=== PATIENT | male | born 1950 ===

== ENCOUNTER 2022-10-13 15:13 | Inpatient (IN) | payer OTHER, MEDICAID, SELFPAY ==
[2022-10-13] VITALS (24 sets, daily range): BP systolic 78–140; BP diastolic 27–64; PULSE 80–100; RESP 17–98; TEMP 32–36.8; O2SAT 96–100; BMI 22.8
--- NOTE | ~2022-10-13 | XR_ITS ---
EXAMINATION: XR CHEST CLINICAL INFORMATION: Shortness of breath COMPARISON: May 30, 2014 TECHNIQUE: AP portable view of the chest was obtained. FINDINGS: There is some patchy regions of density seen about the right upper lobe and left mid and lower lung. Heart normal size. There is prominence of central vascularity however there is no evidence of airspace edema. No pneumothorax or significant pleural effusion. XR/XR chest 1V IMPRESSION: A few regions of ill-defined opacity seen bilaterally which may be related to atelectasis or pneumonitis.
--- NOTE | ~2022-10-13 | CT_ITS ---
EXAMINATION: CT ABDOMEN AND PELVIS WITH CONTRAST CLINICAL INFORMATION: Pain COMPARISON: Previous MR and ultrasound from 2015 is not available to me at this time. This is due to a system problem with retrieving previous images TECHNIQUE: Multidetector volumetric images were obtained from the superior aspect of the liver through the pubic symphysis following administration 85 mL of Omnipaque 350 intravenous contrast. Sagittal and coronal reformatted images were obtained on the technologist's workstation. Oral contrast: No This CT examination was performed using dose optimization techniques as appropriate, variously including the following: *Automated exposure control *Adjustment of mA and/or kV according to patient size (this includes techniques or standardized protocols for targeted exams where dose is matched to indication/reason for exam; i.e. extremities or head) *Use of iterative reconstruction technique DLP: 661 mGy-cm FINDINGS: LUNG BASES: Numerous basilar nodules. Suspicious for metastatic disease LIVER, GALLBLADDER, AND BILIARY TREE: Markedly abnormal liver. Findings consistent with cirrhosis with multiple areas of low density. Tumor needs to be suspected. I suspect also a large mass in the right lobe which is heterogeneous in appearance measuring 10 x 7 cm. Immediately inferior to this is another mass of heterogeneous attenuation which shows lobulated areas of enhancement which are significant and similar to Hounsfield units in the adjacent vasculature. This large lesion is measuring 8 x 10 x 8 cm. Seen on coronal image 60. These lobulated areas of high attenuation may contrast extravasation into tumor. This large lesion sits in the region of the right adrenal gland and therefore adrenal in etiology would be in the differential versus liver etiology The markedly abnormal liver has significant mass effect on the vena cava and tumor is likely invading the vena cava. There may well be occlusion near the dome of the liver. PANCREAS: Unremarkable. SPLEEN: Mild fluid around the spleen. ADRENAL GLANDS: As stated above. Largely large lesion occupies the region of the right adrenal gland. This is having mass effect also in the kidney KIDNEYS AND URETERS: The kidneys are nonhydronephrotic BLADDER: Unremarkable. GASTROINTESTINAL TRACT: The bowel pattern is felt to be nonobstructing. Diverticula disease and there is ascites here mild in the lower abdomen and upper abdomen ABDOMINAL WALL: No significant hernia is appreciated. LYMPH NODES: Mild adenopathy in the portal region. This could be reactive. Malignancy cannot be excluded. Some mild periaortic adenopathy in the upper abdomen as well. VASCULAR: Some atherosclerotic changes are noted. As stated there is significant effect on the vena cava in the liver tumor and occlusion near the diaphragm needs to be considered PELVIC VISCERA: Unremarkable. OSSEOUS STRUCTURES: Unremarkable. CT/CT abdomen pelvis w IV con IMPRESSION: This exam is significantly abnormal. I've no previous exams to compare. Numerous areas of lung nodularity which would be suspicious for metastatic disease. Liver is markedly abnormal suspicious for diffuse tumor and 2 large areas of more concentrated masslike change are occurring and the more inferior of these shows lobular areas of contrast accumulation similar to the adjacent large vasculature. This could represent several areas of active bleeding into tumor As stated there is significant mass effect on the vena cava and the liver process is likely invading the vena cava. The may be inclusion at the level of the diaphragmatic hiatus. Mild ascites is present. Nonobstructing bowel pattern. This critical result was discussed with Dr. Villegas at 6:54 PM on 10/13/2022 and it was ascertained that the content and urgency of the report was understood at the time of direct communication.
--- NOTE | ~2022-10-13 | XR_ITS ---
EXAMINATION: XR CHEST CLINICAL INFORMATION: Endotracheal tube and enterogastric tube placement. COMPARISON: Most recent chest radiograph done earlier the same day. TECHNIQUE: Frontal view of the chest was obtained. FINDINGS: Interval placement of an endotracheal tube with its tip approximately 2 cm proximal to the gabby. Enterogastric tube with the tip beneath the left hemidiaphragm and extending beyond the imaged field of view. Redemonstration of a right-sided central venous catheter with the tip in the region of the distal SVC. Mild left perihilar opacities, slightly decreased and likely representing atelectasis. No new airspace consolidation. No pleural effusion or pneumothorax. Stable cardiomediastinal silhouette. XR/XR chest 1V IMPRESSION: 1. Interval placement of an endotracheal tube with its tip approximately 2 cm proximal to the gabby. Enterogastric tube and right-sided central venous catheter in appropriate position. 2. Mild left perihilar opacities, slightly decreased and likely representing atelectasis.
--- NOTE | ~2022-10-13 | CT_ITS ---
EXAMINATION: CT HEAD WITHOUT CONTRAST CLINICAL INFORMATION: Altered mental status COMPARISON: None available. TECHNIQUE: Contiguous axial imaging was performed from the skull base to vertex without intravenous administration of contrast. This CT examination was performed using dose optimization techniques as appropriate, variously including the following: *Automated exposure control *Adjustment of mA and/or kV according to patient size (this includes techniques or standardized protocols for targeted exams where dose is matched to indication/reason for exam; i.e. extremities or head) *Use of iterative reconstruction technique DLP: 652 mGy-cm FINDINGS: There is no evidence of acute intracranial hemorrhage or edematous territorial infarction. No abnormal mass effect or midline shift is seen. Pearson to white matter differentiation is well preserved. No extra-axial fluid collections are identified. Commensurate prominence of the ventricles and sulci is compatible with generalized parenchymal volume loss. There is periventricular and subcortical white matter hypoattenuation, most likely representing microangiopathic disease. No acute calvarial fracture.. Complete opacification of the right sphenoid sinus. Remainder of the paranasal sinuses and mastoid air cells are well-aerated. CT/CT head/brain wo IV con IMPRESSION: No CT evidence of acute intracranial hemorrhage or edematous territorial infarction. Right sphenoid sinus disease. Chronic changes as detailed above.
--- NOTE | ~2022-10-13 | XR_ITS ---
EXAMINATION: XR chest 1V CLINICAL INFORMATION: Reason for Exam CENTRAL LINE PLCMT COMPARISON: Prior chest x-ray same day earlier TECHNIQUE: XR chest 1V Tubes and lines: Right central line catheter tip projecting over the right atrium. Lungs and pleura: Redemonstration of mild patchy faint interstitial opacification, possibly mild interstitial pneumonitis. Heart and mediastinum: The mediastinum is within normal limits.. Bones/soft tissue: Skeletal structures included are normal for patient's age. XR/XR chest 1V IMPRESSION: * Right central line catheter tip projecting over the right atrium. * Redemonstration of mild patchy interstitial opacification, possibly mild interstitial pneumonitis. * No pleural effusion.
--- NOTE | 2022-10-13 15:26 | ECG_ITS ---
Test Reason : altered mental Blood Pressure : / mmHG Vent. Rate : 093 BPM Atrial Rate : 093 BPM P-R Int : 154 ms QRS Dur : 070 ms QT Int : 358 ms P-R-T Axes : 051 032 050 degrees QTc Int : 445 ms Normal sinus rhythm Nonspecific ST abnormality Abnormal ECG No previous ECGs available Referred By: Nicol Johnson Electronically Signed By:JLUIS HOANG MD
--- NOTE | 2022-10-13 15:35 | ED.GENADULT ---
HPI - General Adult General Chief complaint: General Medical Stated complaint: AMS Source: EMS Mode of arrival: EMS Limitations: altered mental status History of Present Illness HPI narrative: Patient comes to the emergency room via EMS from home. Family called 911 because the patient has altered mental status starting today. The family reported that patient vomited blood yesterday, today they found him completely altered. At baseline, patient alert and oriented x3. Patient used to be an alcoholic, family reports that he has not been drinking alcohol lately. According to EMS, the family did not know much about his medical history other than alcoholism in the past and asthma. Patient is unable to give any history, patient is awake, unable to answer any questions, patient keeps saying ?angelito angelito angelito and unable to answer any questions Related Data Allergies Allergy/AdvReac Type Severity Reaction Status Date / Time No Known Allergies Allergy Unverified 01/31/20 15:07 Review of Systems Review of Systems: Yes Unobtainable due to mental condition [facility] Past Medical History Medical History (Updated 10/13/22 @ 19:44 by Nicol Johnson MD) Alcohol abuse Asthma Hepatitis C Social History Social History Advance Directives: No Advance Directives Information Provided: No Physical Exam ED Vital Signs: Vital Signs - 24 hr 10/13/22 17:39 10/13/22 18:06 10/13/22 18:13 Temperature 96.6 F L 97.9 F 97.9 F Pulse Rate 100 96 96 Respiratory Rate 43 H 41 H 45 H Blood Pressure 140/57 H 125/54 L 125/54 L Pulse Oximetry 98 97 Oxygen Delivery Method Room Air Room Air 10/13/22 18:35 10/13/22 18:58 Temperature 97.9 F Pulse Rate 88 95 Respiratory Rate 38 H 18 Blood Pressure 133/64 118/49 L Pulse Oximetry 100 Oxygen Delivery Method BMI result Body Mass Index 22.8 Const Other: Appearance: Alert. Unable to answer any questions, seems uncomfortable Eyes: Pupils equal, round and reactive to light. ENT: Very dry oral mucosa, scant blood in the mouth, very poor dentition Neck: Normal inspection. Neck supple. No lymph nodes noted. No crepitus CVS: Normal heart rate and rhythm. Pulses normal. Normal S1 and S2, S2 systolic murmur Respiratory: No respiratory distress. Breath sounds normal. No Wheezing. No rales Abdomen: Soft , slightly distended, seems to be tender, digital rectal exam guaiac test positive for occult blood Skin: Skin warm and dry. Slightly pale color. Extremities: No lower extremity edema. Moves all extremities Neuro: Awake, moving all extremities, unable to follow commands, unable to participating cranial nerve assessment Psych: altered Course Course Course Narrative: -all of patient's labs and imaging are pending Medications Administered Generic Name Dose Route Start Last Admin Trade Name Freq PRN Reason Stop Dose Admin Propofol 1,000 mg in 100 mls @ 0 mls/hr 10/13/22 18:45 10/13/22 18:58 Diprivan IVCONT 50 mcg/kg/min .Q0M SCOTT 20.97 mls/hr Administration Protocol Per Protocol Discontinued Medications Generic Name Dose Route Start Last Admin Trade Name Freq PRN Reason Stop Dose Admin Etomidate 20 mg 10/13/22 18:44 10/13/22 18:53 Etomidate 20 Mg/10 Ml Vial IVPUSH 10/13/22 18:45 20 mg ONCE ONE Administration Sodium Chloride 1,000 mls @ 999 mls/hr 10/13/22 15:26 10/13/22 16:04 Ns IVCONT 10/13/22 16:26 999 mls/hr .Q1H1M ONE Administration Sodium Chloride 3,000 mls @ 999 mls/hr 10/13/22 15:42 10/13/22 17:30 Ns IVCONT 10/13/22 18:42 999 mls/hr .Q3H1M ONE Administration Piperacillin Sod/Tazobactam 50 mls @ 100 mls/hr 10/13/22 17:04 10/13/22 18:35 Sod 3.375 gm/ Sodium Chloride IV 10/13/22 17:33 100 mls/hr ONCE ONE Administration Iohexol 100 ml 10/13/22 17:33 10/13/22 17:33 Iohexol 350 Mg/Ml 100 Ml Infus..Btl IV 10/13/22 17:34 85 ml ONCE ONE Administration Lorazepam 2 mg 10/13/22 18:43 10/13/22 18:48 Lorazepam 2 Mg/Ml Vial IVPUSH 10/13/22 18:44 2 mg ONCE ONE Administration Octreotide Acetate 50 mcg 10/13/22 16:55 10/13/22 18:32 Octreotide Acetate 100 Mcg/Ml Ampul IVPUSH 10/13/22 16:56 50 mcg ONCE ONE Administration Pantoprazole Sodium 80 mg 10/13/22 16:55 10/13/22 18:29 Pantoprazole Sodium 40 Mg/10 Ml Vial IVPUSH 10/13/22 16:56 80 mg ONCE ONE Administration Rocuronium [place] 50 mg 10/13/22 18:43 10/13/22 18:52 Rocuronium [place] 50 Mg/5 Ml Vial IVPUSH 10/13/22 18:44 50 mg ONCE ONE Administration Procedures Central Line Placement Right IJ: Time Out Performed: Yes Patient Placed on Monitor/Pulse Ox: Yes MD Prep: mask, gown and gloves Central Line Prep: Chlorhexidine scrub Local Anesthetic: lidocaine 1% Amount of anesthesia used (mL): 5 Ultrasound Used for Placement: Yes Central Line Lumen Inserted: triple Post Procedure: sutured in place, good blood return, all ports aspirated, flushed, capped and sterile dressing applied Post Procedure X-Ray: tip of catheter in good position and no pneumothorax seen Patient Tolerated Procedure: well and no complications Complications: none Intubation Time out performed: Yes sedative: Etomidate Mg Given: 20 paralytic: Rocuronium Mg Given: 50 Laryngoscope: other (GlideScope) ET Tube Size: 7.5 ET Tube Uncuffed: No Tube Secured Depth (cm): 23 Tube Secured Location: lips Tube Placement Confirmation: visualized tube passing through cords, equal breath sounds bilaterally, no breath sounds over epigastrium and confirmation by capnometry Patient Tolerated Procedure: well and no complications Intubation Complications: none Medical Decision Making Medical Decision Making [facility] Narrative: -I reviewed patient's past medical history, in 2010 patient was seen by Gastroenterology, at that point, patient had only past medical history of asthma, alcohol abuse and hepatitis-C -at this time, there is no one at bedside with the patient to get more history. EMS reports that the historian at the patient's house did not know much about the patient's medical history -patient's hemoglobin and hematocrit are 5.7 and 18.3 respectively. Patient cannot make any decisions. Patient is too altered and not answer questions although he is awake. On his records, his significant other's phone number is listed. I called her. They are not together anymore and does not know anything about the patient's current situation. She provided me the phone number of a nephew of Mr. Ruiz. I called but the phone is disconnected. At this time, we do not have any information about his family, can not get consent from anyone, we will go ahead and start the blood transfusion given the emergent situation -stay there is an issue with the labs, there is a major delay all day today. At this time, 17:03 I was informed by the lab the patient's lactic acid is 16.7. Patient's hemoglobin is low, no fever, borderline blood pressures, patient receiving 3 L of normal saline, Zosyn, 3 units of blood. We will go ahead and order a CT scan without any labs. It is possible the patient may have ischemic colitis? And has not vomited in the ED. No bloody bowel movements. -for unclear reasons, the lab could not process the occult guaiac stool test. I did the test at bedside, it is positive for occult blood -[facility] is having a significant delay reporting CT scans. I asked Dr. Blackwood from surgery to review the CT scan. We both reviewed the CT scan, At this time, it does not seem that patient has a surgical condition at this time. Clearly there is an abnormality on the CT scan, the liver is cirrhotic, has a large mass? No free air -my interpretation of chest x-ray after central line placement: No pneumothorax, central line has good placement, I instructed the nurses to go ahead and start using the central line for both, obtaining labs and blood transfusion -patient is very altered, minimally responsive, patient was intubated for airway protection. -CT scans results were discussed with [facility]: Patient has a large liver mass, likely has metastasis, the liver mass is obstructing the vena cava and the right adrenal gland -I discussed the patient with Dr. Martinez, unfortunately, patient is gravely ill, unlikely to survive. Patient would benefit from becoming comfort measures only. At this time, we have been unable to contact any family members. According to EMS, the patient's family knew that he was coming [facility], they have not called or visited him at the hospital. We will continue treatment, hopefully we will be able to get in touch with family members soon. Lab Data 10/13/22 16:16 10/13/22 16:16 Labs: Lab Results 10/13/22 10/13/22 10/13/22 Range/Units 16:16 16:16 16:16 WBC 16.8 H (4.8-10.8) X10*3/uL RBC 1.86 L (4.60-5.80) X10*6/uL Hgb 5.7 L* (14.0-18.0) g/dl Hct 18.9 L* (42.0-52.0) % MCV 101.6 H (80.0-98.0) fL MCH 30.6 (27.0-33.0) pg MCHC 30.2 L (31.0-36.0) g/dl RDW 20.1 H (11.0-16.0) % Plt Count 396 (160-400) X10*3/uL MPV 13.4 H (9.4-12.4) fL Immature Gran % (Auto) 2.6 H (0.0-0.4) % Neut % (Auto) 74.9 H (45-73) % Lymph % (Auto) 13.0 L (20-40) % Hendry % (Auto) 9.4 (2-11) % Eos % (Auto) 0.0 (0-4) % Baso % (Auto) 0.1 (0-2) % Lymph # (Auto) 2.2 (1.2-4.9) X10*3/uL Hendry # (Auto) 1.6 H (0.1-1.2) X10*3/uL Eos # (Auto) 0.0 (0.0-0.4) X10*3/uL Baso # (Auto) 0.0 (0.0-0.2) X10*3/uL Abs Immat Gran (auto) 0.44 H (0.00-0.03) X10*3/uL Absolute Neuts (auto) 12.6 H (2.0-8.3) x10*3/uL Absolute Nucleated RBC 0.090 H (0.0-0.012) X10*3/uL Nucleated RBC % (auto) 0.5 H (0.0-0.2) /100WBC Smear Tech's Comments VERIFIED PT 26.2 H (10.0-13.1) SEC INR 2.2 H (0.9-1.1) APTT (26.0-36.4) SEC VBG pH (7.32-7.43) VBG pCO2 mmHg VBG pO2 mmHg VBG HCO3 (22-26) mmol/L VBG O2 Saturation VBG Base Excess mmol/L Sodium (135-145) mmol/L Potassium (3.3-5.1) mmol/L Chloride (96-108) mmol/L Carbon Dioxide (22-29) mmol/L Anion Gap (12-20) BUN (9-16) mg/dL Creatinine (0.5-1.4) mg/dL Estim Creat Clear Calc Estimated GFR Random Glucose (60-115) mg/dL Lactic Acid 16.7 H* (0.5-2.0) mmol/L Calcium (8.4-10.2) mg/dL Magnesium (1.6-2.6) mg/dL Total Bilirubin (0.0-1.0) mg/dL Direct Bilirubin (0.0-0.5) mg/dL AST (5-37) U/L ALT (0-40) U/L Alkaline Phosphatase (39-117) U/L Ammonia (13-55) umol/L Troponin I High Sens (<3.5-35.0) ng/L B-Natriuretic Peptide (<100) pg/mL Total Protein (6.5-8.0) g/dL Albumin (3.5-5.0) g/dL Lipase (8-78) U/L TSH (0.32-4.0) uIU/mL Urine Color Urine Appearance Urine pH (5.0-9.0) Ur Specific [place] (1.005-1.025) Urine Protein (Neg-Trace) mg/dL Urine Glucose (UA) (Negative) mg/dL Urine Ketones (Negative) mg/dL Urine Blood (Negative) Urine Nitrite (Negative) Ur Leukocyte Esterase (Negative) Urine RBC (0-2) /HPF Urine WBC (0-5) /HPF Ur Squamous Epith Cells (0-2) /HPF Urine Bacteria (None Seen) Hyaline Casts (0-2) /LPF Salicylates (15-30) mg/dL Urine Opiates Screen (Not Detect) Urine Fentanyl Screen (Not Detect) Acetaminophen (<30) mcg/mL Ur Barbiturates Screen (Not Detect) Ur Phencyclidine Scrn (Not Detect) Ur Amphetamines Screen (Not Detect) U Benzodiazepines Scrn (Not Detect) Urine Cocaine Screen (Not Detect) U Marijuana (THC) Screen (Not Detect) Ethyl Alcohol mg/dL COVID-19 (JANELLE) (Negative) COVID-19 Clin Com Blood Type Antibody Screen Crossmatch 10/13/22 10/13/22 10/13/22 Range/Units 16:16 16:16 16:16 WBC (4.8-10.8) X10*3/uL RBC (4.60-5.80) X10*6/uL Hgb (14.0-18.0) g/dl Hct (42.0-52.0) % MCV (80.0-98.0) fL MCH (27.0-33.0) pg MCHC (31.0-36.0) g/dl RDW (11.0-16.0) % Plt Count (160-400) X10*3/uL MPV (9.4-12.4) fL Immature Gran % (Auto) (0.0-0.4) % Neut % (Auto) (45-73) % Lymph % (Auto) (20-40) % Hendry % (Auto) (2-11) % Eos % (Auto) (0-4) % Baso % (Auto) (0-2) % Lymph # (Auto) (1.2-4.9) X10*3/uL [place] # (Auto) (0.1-1.2) X10*3/uL Eos # (Auto) (0.0-0.4) X10*3/uL Baso # (Auto) (0.0-0.2) X10*3/uL Abs Immat Gran (auto) (0.00-0.03) X10*3/uL Absolute Neuts (auto) (2.0-8.3) x10*3/uL Absolute Nucleated RBC (0.0-0.012) X10*3/uL Nucleated RBC % (auto) (0.0-0.2) /100WBC Smear Tech's Comments PT (10.0-13.1) SEC INR (0.9-1.1) APTT (26.0-36.4) SEC VBG pH (7.32-7.43) VBG pCO2 mmHg VBG pO2 mmHg VBG HCO3 (22-26) mmol/L VBG O2 Saturation VBG Base Excess mmol/L Sodium (135-145) mmol/L Potassium (3.3-5.1) mmol/L Chloride (96-108) mmol/L Carbon Dioxide (22-29) mmol/L Anion Gap (12-20) BUN (9-16) mg/dL Creatinine (0.5-1.4) mg/dL Estim Creat Clear Calc Estimated GFR Random Glucose (60-115) mg/dL Lactic Acid (0.5-2.0) mmol/L Calcium (8.4-10.2) mg/dL Magnesium (1.6-2.6) mg/dL Total Bilirubin (0.0-1.0) mg/dL Direct Bilirubin (0.0-0.5) mg/dL AST (5-37) U/L ALT (0-40) U/L Alkaline Phosphatase (39-117) U/L Ammonia 216 H (13-55) umol/L Troponin I High Sens 7.6 (<3.5-35.0) ng/L B-Natriuretic Peptide (<100) pg/mL Total Protein (6.5-8.0) g/dL Albumin (3.5-5.0) g/dL Lipase (8-78) U/L TSH (0.32-4.0) uIU/mL Urine Color Urine Appearance Urine pH (5.0-9.0) Ur Specific [place] (1.005-1.025) Urine Protein (Neg-Trace) mg/dL Urine Glucose (UA) (Negative) mg/dL Urine Ketones (Negative) mg/dL Urine Blood (Negative) Urine Nitrite (Negative) Ur Leukocyte Esterase (Negative) Urine RBC (0-2) /HPF Urine WBC (0-5) /HPF Ur Squamous Epith Cells (0-2) /HPF Urine Bacteria (None Seen) Hyaline Casts (0-2) /LPF Salicylates (15-30) mg/dL Urine Opiates Screen (Not Detect) Urine Fentanyl Screen (Not Detect) Acetaminophen (<30) mcg/mL Ur Barbiturates Screen (Not Detect) Ur Phencyclidine Scrn (Not Detect) Ur Amphetamines Screen (Not Detect) U Benzodiazepines Scrn (Not Detect) Urine Cocaine Screen (Not Detect) U Marijuana (THC) Screen (Not Detect) Ethyl Alcohol mg/dL COVID-19 (JANELLE) Negative (Negative) COVID-19 Clin Com See Note Blood Type Antibody Screen Crossmatch 10/13/22 10/13/22 10/13/22 Range/Units 16:16 16:16 16:55 WBC (4.8-10.8) X10*3/uL RBC (4.60-5.80) X10*6/uL Hgb (14.0-18.0) g/dl Hct (42.0-52.0) % MCV (80.0-98.0) fL MCH (27.0-33.0) pg MCHC (31.0-36.0) g/dl RDW (11.0-16.0) % Plt Count (160-400) X10*3/uL MPV (9.4-12.4) fL Immature Gran % (Auto) (0.0-0.4) % Neut % (Auto) (45-73) % Lymph % (Auto) (20-40) % [place] % (Auto) (2-11) % Eos % (Auto) (0-4) % Baso % (Auto) (0-2) % Lymph # (Auto) (1.2-4.9) X10*3/uL [place] # (Auto) (0.1-1.2) X10*3/uL Eos # (Auto) (0.0-0.4) X10*3/uL Baso # (Auto) (0.0-0.2) X10*3/uL Abs Immat Gran (auto) (0.00-0.03) X10*3/uL Absolute Neuts (auto) (2.0-8.3) x10*3/uL Absolute Nucleated RBC (0.0-0.012) X10*3/uL Nucleated RBC % (auto) (0.0-0.2) /100WBC Smear Tech's Comments PT (10.0-13.1) SEC INR (0.9-1.1) APTT 31.9 (26.0-36.4) SEC VBG pH (7.32-7.43) VBG pCO2 mmHg VBG pO2 mmHg VBG HCO3 (22-26) mmol/L VBG O2 Saturation VBG Base Excess mmol/L Sodium (135-145) mmol/L Potassium (3.3-5.1) mmol/L Chloride (96-108) mmol/L Carbon Dioxide (22-29) mmol/L Anion Gap (12-20) BUN (9-16) mg/dL Creatinine (0.5-1.4) mg/dL Estim Creat Clear Calc Estimated GFR Random Glucose (60-115) mg/dL Lactic Acid (0.5-2.0) mmol/L Calcium (8.4-10.2) mg/dL Magnesium (1.6-2.6) mg/dL Total Bilirubin (0.0-1.0) mg/dL Direct Bilirubin (0.0-0.5) mg/dL AST (5-37) U/L ALT (0-40) U/L Alkaline Phosphatase (39-117) U/L Ammonia (13-55) umol/L Troponin I High Sens (<3.5-35.0) ng/L B-Natriuretic Peptide 104 H (<100) pg/mL Total Protein (6.5-8.0) g/dL Albumin (3.5-5.0) g/dL Lipase (8-78) U/L TSH 0.97 (0.32-4.0) uIU/mL Urine Color Urine Appearance Urine pH (5.0-9.0) Ur Specific [place] (1.005-1.025) Urine Protein (Neg-Trace) mg/dL Urine Glucose (UA) (Negative) mg/dL Urine Ketones (Negative) mg/dL Urine Blood (Negative) Urine Nitrite (Negative) Ur Leukocyte Esterase (Negative) Urine RBC (0-2) /HPF Urine WBC (0-5) /HPF Ur Squamous Epith Cells (0-2) /HPF Urine Bacteria (None Seen) Hyaline Casts (0-2) /LPF Salicylates (15-30) mg/dL Urine Opiates Screen (Not Detect) Urine Fentanyl Screen (Not Detect) Acetaminophen (<30) mcg/mL Ur Barbiturates Screen (Not Detect) Ur Phencyclidine Scrn (Not Detect) Ur Amphetamines Screen (Not Detect) U Benzodiazepines Scrn (Not Detect) Urine Cocaine Screen (Not Detect) U Marijuana (THC) Screen (Not Detect) Ethyl Alcohol < 10 mg/dL COVID-19 (JANELLE) (Negative) COVID-19 Clin Com Blood Type Antibody Screen Crossmatch 10/13/22 10/13/22 10/13/22 Range/Units 16:55 17:04 17:48 WBC (4.8-10.8) X10*3/uL RBC (4.60-5.80) X10*6/uL Hgb (14.0-18.0) g/dl Hct (42.0-52.0) % MCV (80.0-98.0) fL MCH (27.0-33.0) pg MCHC (31.0-36.0) g/dl RDW (11.0-16.0) % Plt Count (160-400) X10*3/uL MPV (9.4-12.4) fL Immature Gran % (Auto) (0.0-0.4) % Neut % (Auto) (45-73) % Lymph % (Auto) (20-40) % Hend[place] % (Auto) (2-11) % Eos % (Auto) (0-4) % Baso % (Auto) (0-2) % Lymph # (Auto) (1.2-4.9) X10*3/uL [place] # (Auto) (0.1-1.2) X10*3/uL Eos # (Auto) (0.0-0.4) X10*3/uL Baso # (Auto) (0.0-0.2) X10*3/uL Abs Immat Gran (auto) (0.00-0.03) X10*3/uL Absolute Neuts (auto) (2.0-8.3) x10*3/uL Absolute Nucleated RBC (0.0-0.012) X10*3/uL Nucleated RBC % (auto) (0.0-0.2) /100WBC Smear Tech's Comments PT (10.0-13.1) SEC INR (0.9-1.1) APTT (26.0-36.4) SEC VBG pH 7.34 (7.32-7.43) VBG pCO2 20 mmHg VBG pO2 56 mmHg VBG HCO3 11 L (22-26) mmol/L VBG O2 Saturation TNP VBG Base Excess -13.0 mmol/L Sodium (135-145) mmol/L Potassium (3.3-5.1) mmol/L Chloride (96-108) mmol/L Carbon Dioxide (22-29) mmol/L Anion Gap (12-20) BUN (9-16) mg/dL Creatinine (0.5-1.4) mg/dL Estim Creat Clear Calc Estimated GFR Random Glucose (60-115) mg/dL Lactic Acid (0.5-2.0) mmol/L Calcium (8.4-10.2) mg/dL Magnesium (1.6-2.6) mg/dL Total Bilirubin (0.0-1.0) mg/dL Direct Bilirubin (0.0-0.5) mg/dL AST (5-37) U/L ALT (0-40) U/L Alkaline Phosphatase (39-117) U/L Ammonia (13-55) umol/L Troponin I High Sens (<3.5-35.0) ng/L B-Natriuretic Peptide (<100) pg/mL Total Protein (6.5-8.0) g/dL Albumin (3.5-5.0) g/dL Lipase (8-78) U/L TSH (0.32-4.0) uIU/mL Urine Color Dark Yellow Urine Appearance Cloudy Urine pH 5.5 (5.0-9.0) Ur Specific [place] 1.025 (1.005-1.025) Urine Protein 30 (1+) H (Neg-Trace) mg/dL Urine Glucose (UA) Negative (Negative) mg/dL Urine Ketones Trace (Negative) mg/dL Urine Blood Trace H (Negative) Urine Nitrite Negative (Negative) Ur Leukocyte Esterase Trace H (Negative) Urine RBC 6-10 H (0-2) /HPF Urine WBC 6-10 H (0-5) /HPF Ur Squamous Epith Cells 3-5 (0-2) /HPF Urine Bacteria None Seen (None Seen) Hyaline Casts >20 (0-2) /LPF Salicylates (15-30) mg/dL Urine Opiates Screen (Not Detect) Urine Fentanyl Screen (Not Detect) Acetaminophen (<30) mcg/mL Ur Barbiturates Screen (Not Detect) Ur Phencyclidine Scrn (Not Detect) Ur Amphetamines Screen (Not Detect) U Benzodiazepines Scrn (Not Detect) Urine Cocaine Screen (Not Detect) U Marijuana (THC) Screen (Not Detect) Ethyl Alcohol mg/dL COVID-19 (JANELLE) (Negative) COVID-19 Clin Com Blood Type O Positive Antibody Screen NEGATIVE Crossmatch See Detail 10/13/22 10/13/22 Range/Units 17:48 18:18 WBC (4.8-10.8) X10*3/uL RBC (4.60-5.80) X10*6/uL Hgb (14.0-18.0) g/dl Hct (42.0-52.0) % MCV (80.0-98.0) fL MCH (27.0-33.0) pg MCHC (31.0-36.0) g/dl RDW (11.0-16.0) % Plt Count (160-400) X10*3/uL MPV (9.4-12.4) fL Immature Gran % (Auto) (0.0-0.4) % Neut % (Auto) (45-73) % Lymph % (Auto) (20-40) % Hend[place] % (Auto) (2-11) % Eos % (Auto) (0-4) % Baso % (Auto) (0-2) % Lymph # (Auto) (1.2-4.9) X10*3/uL [place] # (Auto) (0.1-1.2) X10*3/uL Eos # (Auto) (0.0-0.4) X10*3/uL Baso # (Auto) (0.0-0.2) X10*3/uL Abs Immat Gran (auto) (0.00-0.03) X10*3/uL Absolute Neuts (auto) (2.0-8.3) x10*3/uL Absolute Nucleated RBC (0.0-0.012) X10*3/uL Nucleated RBC % (auto) (0.0-0.2) /100WBC Smear Tech's Comments PT (10.0-13.1) SEC INR (0.9-1.1) APTT (26.0-36.4) SEC VBG pH (7.32-7.43) VBG pCO2 mmHg VBG pO2 mmHg VBG HCO3 (22-26) mmol/L VBG O2 Saturation VBG Base Excess mmol/L Sodium 140 (135-145) mmol/L Potassium 6.4 H* (3.3-5.1) mmol/L Chloride 106 (96-108) mmol/L Carbon Dioxide 10 L* (22-29) mmol/L Anion Gap 30 H (12-20) BUN 76 H (9-16) mg/dL Creatinine 1.96 H (0.5-1.4) mg/dL Estim Creat Clear Calc 32.6 Estimated GFR 34 Random Glucose 77 (60-115) mg/dL Lactic Acid (0.5-2.0) mmol/L Calcium 7.9 L (8.4-10.2) mg/dL Magnesium 2.2 (1.6-2.6) mg/dL Total Bilirubin 4.4 H (0.0-1.0) mg/dL Direct Bilirubin 3.2 H (0.0-0.5) mg/dL AST 4133 H (5-37) U/L ALT 1045 H (0-40) U/L Alkaline Phosphatase 327 H (39-117) U/L Ammonia (13-55) umol/L Troponin I High Sens (<3.5-35.0) ng/L B-Natriuretic Peptide (<100) pg/mL Total Protein 6.0 L (6.5-8.0) g/dL Albumin 1.9 L (3.5-5.0) g/dL Lipase 78 (8-78) U/L TSH (0.32-4.0) uIU/mL Urine Color Urine Appearance Urine pH (5.0-9.0) Ur Specific [place] (1.005-1.025) Urine Protein (Neg-Trace) mg/dL Urine Glucose (UA) (Negative) mg/dL Urine Ketones (Negative) mg/dL Urine Blood (Negative) Urine Nitrite (Negative) Ur Leukocyte Esterase (Negative) Urine RBC (0-2) /HPF Urine WBC (0-5) /HPF Ur Squamous Epith Cells (0-2) /HPF Urine Bacteria (None Seen) Hyaline Casts (0-2) /LPF Salicylates 5.6 L (15-30) mg/dL Urine Opiates Screen Not Detected (Not Detect) Urine Fentanyl Screen Not Detected (Not Detect) Acetaminophen < 17 (<30) mcg/mL Ur Barbiturates Screen Not Detected (Not Detect) Ur Phencyclidine Scrn Not Detected (Not Detect) Ur Amphetamines Screen Not Detected (Not Detect) U Benzodiazepines Scrn Not Detected (Not Detect) Urine Cocaine Screen Not Detected (Not Detect) U Marijuana (THC) Screen Not Detected (Not Detect) Ethyl Alcohol mg/dL COVID-19 (JANELLE) (Negative) COVID-19 Clin Com Blood Type Antibody Screen Crossmatch Critical Care Time Critical Care Time Critical Care Time: Yes Total Critical Care Time: 120 Attestation: I have personally provided critical care time. Time includes review of lab data, radiology results, discussion with consultants, and monitoring for potential decompensation. Intervention performed as documented. Discharge Plan Discharge Clinical Impression: Cancer of liver, Acute GI bleeding, Anemia, Acute hyperkalemia, Acute kidney injury, Transaminitis Patient Disposition: Admitted As Inpatient
[2022-10-13] MEDS: 0.9 % Sodium Chloride 1,000 ML 999 ML IVCONT (16:04)
[2022-10-13 16:35] LABS: SCAN SMEAR FLAG 1
[2022-10-13 16:36] LABS: INTERNATIONAL NORM RATIO 2.2 (0.9-1.1); Prothrombin Time 26.2 SEC (10.0-13.1)
[2022-10-13 16:37] LABS: Basophils Percent Auto 0.1 % (0-2); Imm Gran Abs Auto 0.44 X10*3/uL (0.00-0.03); Imm Gran Pct Auto 2.6 % (0.0-0.4); Lymphocytes Absolute Auto 2.2 X10*3/uL (1.2-4.9); MANUAL DIFF FLAG SCAN; Mean Corpuscular HGB Conc 30.2 g/dl (31.0-36.0); Mean Corpuscular Hemoglobin 30.6 pg (27.0-33.0); Mean Platelet Volume 13.4 fL (9.4-12.4); Monocytes Absolute Auto 1.6 X10*3/uL (0.1-1.2); Monocytes Percent Auto 9.4 % (2-11); NRBC Pct Auto 0.5 /100WBC (0.0-0.2); Neutrophils Absolute Auto 12.6 x10*3/uL (2.0-8.3); Neutrophils Percent Auto 74.9 % (45-73); PLT CLUMP 1; Red Blood Count 1.86 X10*6/uL (4.60-5.80); Red Cell Distribution Width 20.1 % (11.0-16.0)
[2022-10-13 16:40] LABS: Ammonia 216 umol/L (13-55); Hematocrit 18.9 % (42.0-52.0); PLT ABN DIST 1
[2022-10-13 16:41] LABS: Hemoglobin 5.7 g/dl (14.0-18.0)
[2022-10-13 16:47] LABS: COVID-19 Test Negative (Negative); IDNOW Serial# BCCEAD1C
[2022-10-13 16:49] LABS: B Type Natriuretic Peptide 104 pg/mL (<100); Troponin-I High Sensitivity 7.6 ng/L (<3.5-35.0)
[2022-10-13 16:50] LABS: Ethanol < 10 mg/dL
[2022-10-13 17:01] LABS: Lactic Acid 16.7 mmol/L (0.5-2.0)
[2022-10-13 17:03] LABS: TSH reflex Free T4 0.97 uIU/mL (0.32-4.0)
[2022-10-13 17:07] LABS: Platelet Count 396 X10*3/uL (160-400); White Blood Count 16.8 X10*3/uL (4.8-10.8)
[2022-10-13 17:09] LABS: Mean Corpuscular Volume 101.6 fL (80.0-98.0)
[2022-10-13 17:10] LABS: SLIDE REVIEW VERIFIED
[2022-10-13 17:11] LABS: Venous Blood Gas Refer to POC result
[2022-10-13 17:12] LABS: VBG HCO3 11 mmol/L (22-26); VBG pCO2 20 mmHg; VBG pH 7.34 (7.32-7.43); VBG pO2 56 mmHg
[2022-10-13 17:17] LABS: Partial Thromboplastin Time 31.9 SEC (26.0-36.4)
--- NOTE | 2022-10-13 17:25 | PC.NURSE ---
pT UNABLE TO REMAIN STILL IN CT, ATIVAN GIVEN BY CHARGE NURSE PER MD VERBAL ORDER
[2022-10-13] MEDS: 0.9 % Sodium Chloride 3,000 ML 999 ML IVCONT (17:30)
[2022-10-13] MEDS: iohexoL 350 MG/ML 100 ML INFUS..BTL IV (17:33)
[2022-10-13 18:06] LABS: Appearance Urine Cloudy; Color Urine Dark Yellow; Glucose Urine UA Negative (Negative); Leukocyte Esterase Urine Trace (Negative); Nitrite Urine Negative (Negative); PH 5.5 (5.0-9.0); Specific Gravity - Urine 1.025 (1.005-1.025); UMIC TRIGGER UACC YES; Urine Blood Trace (Negative); Urine Ketones Trace mg/dL (Negative); Urine Protein 30 (1+) mg/dL (Neg-Trace)
[2022-10-13 18:12] LABS: Amphetamine Screen Urine Not Detected (Not Detect); Barbiturates, Urine Not Detected (Not Detect); Benzodiazepines Screen Urine Not Detected (Not Detect); Cannabinoid Screen Urine Not Detected (Not Detect); Cocaine Screen Urine Not Detected (Not Detect); Fentanyl, urine Not Detected (Not Detect); Opiate Screen Urine Not Detected (Not Detect); Phencyclidine Screen Urine Not Detected (Not Detect)
[2022-10-13 18:21] LABS: Bacteria Urine None Seen (None Seen); Hyaline Casts Urine >20 /LPF (0-2); UACC Culture Trigger YES
[2022-10-13 18:22] LABS: Reflex Lactate? Lactic Acid Added
[2022-10-13] MEDS: Pantoprazole Sodium 40 MG/10 ML VIAL 80 MG IVPUSH (18:29)
[2022-10-13] MEDS: Octreotide Acetate 100 MCG/ML AMPUL 50 MCG IVPUSH (18:32)
[2022-10-13] MEDS: Piperacillin Sodium/Tazobactam 3.375 GM in 0.9 % Sodium Chloride 50 ML IV (18:35)
--- NOTE | 2022-10-13 18:42 | PC.NURSE ---
Pt became hypoxic 70% on room air with good pleth. non-rebreather placed, notified. Pt to be intubated
[2022-10-13] MEDS: LORazepam 2 MG/ML VIAL IVPUSH (18:48)
[2022-10-13] MEDS: Rocuronium Bromide 50 MG/5 ML VIAL IVPUSH (18:52)
[2022-10-13 18:53] LABS: Acetaminophen LAB < 17 mcg/mL (<30); Alanine Aminotransferase 1045 U/L (0-40); Albumin Level 1.9 g/dL (3.5-5.0); Alkaline Phosphatase 327 U/L (39-117); Anion Gap 30 (12-20); Aspartate Amino Transferase 4133 U/L (5-37); Bilirubin Direct 3.2 mg/dL (0.0-0.5); Bilirubin Total 4.4 mg/dL (0.0-1.0); Blood Urea Nitrogen 76 mg/dL (9-16); Calcium 7.9 mg/dL (8.4-10.2); Carbon Dioxide 10 mmol/L (22-29); Chloride 106 mmol/L (96-108); Creatinine Clr Calc Pharmacy 32.6; Estimated Glomerular Filt Rate 34; Glucose Random 77 mg/dL (60-115); Lipase 78 U/L (8-78); Magnesium 2.2 mg/dL (1.6-2.6); Potassium 6.4 mmol/L (3.3-5.1); Salicylate 5.6 mg/dL (15-30); Sodium 140 mmol/L (135-145)
[2022-10-13] MEDS: Etomidate 20 MG/10 ML VIAL IVPUSH (18:53)
[2022-10-13] MEDS: propofoL 1,000 MG/100 ML VIAL 20.97 MG IVCONT ×2 (18:58→21:49)
--- NOTE | 2022-10-13 19:01 | PC.NURSE ---
Pt intubated with 4 RTs, 1MD and 2RNs. Pt tolerated procedure well. VSS, will provide full report to cargo mate RN.
[2022-10-13] MEDS: Sodium Bicarbonate 8.4% 50 MEQ/50 ML SYRINGE IVPUSH (19:44)
--- NOTE | 2022-10-13 20:00 | MHC.EDTECH ---
this pct was told by RENA Chaves to disregard repeat lactic acid due to fluids still running. Pt was the transferred to ICU.
[2022-10-13] MEDS: Lactulose 320 GM/480 ML SOLUTION 200 GM PR (20:01)
--- NOTE | 2022-10-13 20:06 | PHA.MEDREC ---
Pharmacy Consult ? Medication Reconciliation Pharmacy has completed the medication reconciliation. medications unobtainable. Patient unable to provide history. Claim history shows few medications from last March. No contact on file for adequate medication history.
[2022-10-13] MEDS: Calcium Gluconate/NaCl,Iso-Osm 2 GM/100 ML PLAST..BAG IV (20:07)
[2022-10-13] MEDS: Sodium Bicarbonate 8.4% 150 MEQ in Dextrose 5 % 850 ML 100 MEQ IV (20:17)
[2022-10-13] MEDS: Insulin Regular, Human 100 UNIT/ML 3 ML VIAL 10 UNIT IVPUSH (20:25)
[2022-10-13 21:15] LABS: ~Lactic Acid-LAB USE ONLY 12.8 mmol/L (0.5-2.0)
--- NOTE | 2022-10-13 21:25 | P.HPCC_ITS ---
History of Present Illness Date of Service: 10/13/22 Attending physician on admission: Sudhir Martinez Chief Complaint: Acute GI Bleed Mr. Ruiz? is a 72-year-old male? with a past medical history of alcoholism, asthma, hepatitis C ?who was brought in by ambulance for altered mental status. According to EMS the family? reported that the patient vomited blood yesterday? and was found completely altered today.? At baseline the patient is alert and oriented x3. ? Family did not know much more about his medical history but reported that he has not been drinking alcohol lately.?? On arrival to the emergency room?his temp was 96.6 ?, heart rate 100, respiratory rate 43, blood pressure 140/57, satting 98% on room air. ? His mental status was altered; he was unable to supply history or even answer any questions. Laboratory data significant for WBC 16.8, hemoglobin 5.7, hematocrit 18.9, platelet 396, INR 2.2,?potassium 6.4, CO2 10, anion gap of 30, BUN 76, creatinine 1.96, lactic acid 16.7, T bili? 4.4, AST 4133, ALT 1045, alk-phos 327, ammonia 216, troponin 7.6, BNP 104, albumin 1.9, total protein 6.0, TSH is 0.97.? Urinalysis showed 1+ protein, trace blood, trace leukocyte esterase, nitrite negative, no bacteria seen.? Bedside guaiac positive for occult blood. Imaging: CXR- A few regions of ill-defined opacity seen bilaterally which may be related to atelectasis or pneumonitis. Head CT- No CT evidence of acute intracranial hemorrhage or edematous territorial infarction. Right sphenoid sinus disease. Chronic changes as detailed above. Abdomen/pelvis CT- This exam is significantly abnormal. No previous exams to compare. Numerous areas of lung nodularity which would be suspicious for metastatic disease. ? Liver is markedly abnormal suspicious for diffuse tumor and 2 large areas of more concentrated masslike change are occurring and the more inferior of these shows lobular areas of contrast accumulation similar to the adjacent large vasculature. This could represent several areas of active bleeding into tumor ? As stated there is significant mass effect on the vena cava and the liver process is likely invading the vena cava. The may be inclusion at the level of the diaphragmatic hiatus. ? Mild ascites is present. Nonobstructing bowel pattern. ED course:? ? Patient was intubated for airway protection. CVC was placed.? Patient received 3 L of normal saline, Zosyn, 3 units of blood, two amps sodium bicarb, calcium gluconate 2g, octreotide acetate 50 mcg, pantoprazole sodium 80 mg, lactulose 200 g, insulin 10 units.? Several attempts were made by the ER physician to contact family without success. ? Given the patient?s grave prognosis he is unlikely to survive.? The patient is admitted to the ICU for management of acute GI bleed. Review of Systems Review of Systems: Yes unobtainable due to endotracheal tube PMFSH Past Medical History Medical History (Updated 10/13/22 @ 22:33 by Rosette Hathaway NP) Alcohol abuse Asthma Hepatitis C Social History Social History Currently Displaying Signs/Symptoms of Drug Intoxication Withdrawal: No Advance Directives: No Advance Directives Information Provided: No Meds Allergies Allergy/AdvReac Type Severity Reaction Status Date / Time No Known Allergies Allergy Unverified 01/31/20 15:07 Active Medications: Current Medications Chlorhexidine Gluconate (Chlorhexidine Gluc Oral Rinse 15 Ml Mouthwash) 15 ml BUCCAL TID SCOTT Propofol (Diprivan) 1,000 mg in 100 mls @ 0 mls/hr IVCONT .Q0M SCOTT; Protocol Last Titration: 10/13/22 20:54 Dose: 50 mcg/kg/min, 20.97 mls/hr Sodium Bicarbonate 150 meq/ (Dextrose) 1,000 mls @ 100 mls/hr IV .Q10H SCOTT Last Admin: 10/13/22 20:17 Dose: 100 mls/hr Dextrose (D10) 250 mls @ 750 mls/hr IV Q15M PRN PRN Reason: per Hypoglycemia Standing Ord. Piperacillin Sod/Tazobactam (Sod 3.375 gm/ Sodium Chloride) 50 mls @ 100 mls/hr IV Q6H SCOTT Norepinephrine Bitartrate (Levophed) 8 mg in 250 mls @ 0 mls/hr IV .Q0M SCOTT; Protocol Pantoprazole Sodium (Pantoprazole Sodium 40 Mg/10 Ml Vial) 40 mg IVPUSH BID@0630,1630 [facility] Home Medications Medication Instructions Recorded Confirmed Last Taken Type Unobtainable 10/13/22 10/13/22 Unknown History Physical Exam Vital Signs: Vital Signs: Last Vital Signs Temp 97.0 F 10/13/22 20:03 Pulse 99 10/13/22 20:54 Resp 18 10/13/22 20:54 BP 94/47 L 10/13/22 20:54 Pulse Ox 100 10/13/22 20:54 O2 Del Method Room Air 10/13/22 18:06 FiO2 60 10/13/22 19:13 BMI result Body Mass Index 22.8 Const: General: ill appearing acutely HEENT: Head: Yes normocephalic and Yes atraumatic General nose exam: Normal external nose present (Nares patent, septum midline, sinuses nontender bilater ally.) Mouth: Abnormal oral and palatal mucosa present (Dry) Teeth and gingiva: poor dentition Eyes: Sclerae: scleral abnormal bilateral (icteric) Pupils: Equal, round and reactive pupils present Neck: Neck: Yes supple (no thyromegaly, trachea midline.) Carotids: normal carotid upstroke Resp: Effort & Inspection: normal respiratory effort Auscultation: clear to auscultation bilaterally (normal work of breathing, no accessory muscle use) Cardio: Jugular venous distension: no JVD Rate: regular rate Rhythm: regular rhythm Heart sounds: no gallops, Murmur heart sound present systolic and no rubs Peripheral pulses: Peripheral pulses 2+ throughout GI: Palpation (GI): Tenderness to palpation present (GI) in the RUQ and Hepatomegaly present Auscultation: normal bowel sounds Skin: General skin exam: no rashes or lesions noted (jaundiced) and pallor Neuro: Cranial nerves: Yes Equal, round and reactive pupils present Extrem: General: Yes full ROM, Yes capillary refill normal and Yes no clubbing , cyanosis or edema Results Labs 10/13/22 16:16 10/13/22 18:18 Labs: Laboratory Results - last 24 hr 10/13/22 10/13/22 10/13/22 16:16 16:16 16:16 MCV 101.6 H MCH 30.6 MCHC 30.2 L RDW 20.1 H Plt Count 396 MPV 13.4 H Immature Gran % (Auto) 2.6 H Neut % (Auto) 74.9 H Lymph % (Auto) 13.0 L [place] % (Auto) 9.4 Eos % (Auto) 0.0 Baso % (Auto) 0.1 Lymph # (Auto) 2.2 [place] # (Auto) 1.6 H Eos # (Auto) 0.0 Baso # (Auto) 0.0 Abs Immat Gran (auto) 0.44 H Absolute Neuts (auto) 12.6 H Absolute Nucleated RBC 0.090 H Nucleated RBC % (auto) 0.5 H Smear Tech's Comments VERIFIED PT 26.2 H INR 2.2 H APTT VBG pH VBG pCO2 VBG pO2 VBG HCO3 VBG O2 Saturation VBG Base Excess Anion Gap Estim Creat Clear Calc Estimated GFR Random Glucose Lactic Acid 16.7 H* Lactic Acid F/U @ 2Hr Calcium Magnesium Total Bilirubin Direct Bilirubin AST ALT Alkaline Phosphatase Ammonia Troponin I High Sens B-Natriuretic Peptide Total Protein Albumin Lipase TSH Urine Color Urine Appearance Urine pH Ur Specific [place] Urine Protein Urine Glucose (UA) Urine Ketones Urine Blood Urine Nitrite Ur Leukocyte Esterase Urine RBC Urine WBC Ur Squamous Epith Cells Urine Bacteria Hyaline Casts Salicylates Urine Opiates Screen Urine Fentanyl Screen Acetaminophen Ur Barbiturates Screen Ur Phencyclidine Scrn Ur Amphetamines Screen U Benzodiazepines Scrn Urine Cocaine Screen U Marijuana (THC) Screen Ethyl Alcohol COVID-19 (JANELLE) COVID-19 Clin Com Blood Type Antibody Screen Crossmatch 10/13/22 10/13/22 10/13/22 16:16 16:16 16:16 MCV MCH MCHC RDW Plt Count MPV Immature Gran % (Auto) Neut % (Auto) Lymph % (Auto) [place] % (Auto) Eos % (Auto) Baso % (Auto) Lymph # (Auto) [place] # (Auto) Eos # (Auto) Baso # (Auto) Abs Immat Gran (auto) Absolute Neuts (auto) Absolute Nucleated RBC Nucleated RBC % (auto) Smear Tech's Comments PT INR APTT VBG pH VBG pCO2 VBG pO2 VBG HCO3 VBG O2 Saturation VBG Base Excess Anion Gap Estim Creat Clear Calc Estimated GFR Random Glucose Lactic Acid Lactic Acid F/U @ 2Hr Calcium Magnesium Total Bilirubin Direct Bilirubin AST ALT Alkaline Phosphatase Ammonia 216 H Troponin I High Sens 7.6 B-Natriuretic Peptide Total Protein Albumin Lipase TSH Urine Color Urine Appearance Urine pH Ur Specific [place] Urine Protein Urine Glucose (UA) Urine Ketones Urine Blood Urine Nitrite Ur Leukocyte Esterase Urine RBC Urine WBC Ur Squamous Epith Cells Urine Bacteria Hyaline Casts Salicylates Urine Opiates Screen Urine Fentanyl Screen Acetaminophen Ur Barbiturates Screen Ur Phencyclidine Scrn Ur Amphetamines Screen U Benzodiazepines Scrn Urine Cocaine Screen U Marijuana (THC) Screen Ethyl Alcohol COVID-19 (JANELLE) Negative COVID-19 Clin Com See Note Blood Type Antibody Screen Crossmatch 10/13/22 10/13/22 10/13/22 16:16 16:16 16:55 MCV MCH MCHC RDW Plt Count MPV Immature Gran % (Auto) Neut % (Auto) Lymph % (Auto) [place] % (Auto) Eos % (Auto) Baso % (Auto) Lymph # (Auto) [place] # (Auto) Eos # (Auto) Baso # (Auto) Abs Immat Gran (auto) Absolute Neuts (auto) Absolute Nucleated RBC Nucleated RBC % (auto) Smear Tech's Comments PT INR APTT 31.9 VBG pH VBG pCO2 VBG pO2 VBG HCO3 VBG O2 Saturation VBG Base Excess Anion Gap Estim Creat Clear Calc Estimated GFR Random Glucose Lactic Acid Lactic Acid F/U @ 2Hr Calcium Magnesium Total Bilirubin Direct Bilirubin AST ALT Alkaline Phosphatase Ammonia Troponin I High Sens B-Natriuretic Peptide 104 H Total Protein Albumin Lipase TSH 0.97 Urine Color Urine Appearance Urine pH Ur Specific [place] Urine Protein Urine Glucose (UA) Urine Ketones Urine Blood Urine Nitrite Ur Leukocyte Esterase Urine RBC Urine WBC Ur Squamous Epith Cells Urine Bacteria Hyaline Casts Salicylates Urine Opiates Screen Urine Fentanyl Screen Acetaminophen Ur Barbiturates Screen Ur Phencyclidine Scrn Ur Amphetamines Screen U Benzodiazepines Scrn Urine Cocaine Screen U Marijuana (THC) Screen Ethyl Alcohol < 10 COVID-19 (JANELLE) COVID-19 Clin Com Blood Type Antibody Screen Crossmatch 10/13/22 10/13/22 10/13/22 16:55 17:04 17:48 MCV MCH MCHC RDW Plt Count MPV Immature Gran % (Auto) Neut % (Auto) Lymph % (Auto) [place] % (Auto) Eos % (Auto) Baso % (Auto) Lymph # (Auto) [place] # (Auto) Eos # (Auto) Baso # (Auto) Abs Immat Gran (auto) Absolute Neuts (auto) Absolute Nucleated RBC Nucleated RBC % (auto) Smear Tech's Comments PT INR APTT VBG pH 7.34 VBG pCO2 20 VBG pO2 56 VBG HCO3 11 L VBG O2 Saturation TNP VBG Base Excess -13.0 Anion Gap Estim Creat Clear Calc Estimated GFR Random Glucose Lactic Acid Lactic Acid F/U @ 2Hr Calcium Magnesium Total Bilirubin Direct Bilirubin AST ALT Alkaline Phosphatase Ammonia Troponin I High Sens B-Natriuretic Peptide Total Protein Albumin Lipase TSH Urine Color Dark Yellow Urine Appearance Cloudy Urine pH 5.5 Ur Specific [place] 1.025 Urine Protein 30 (1+) H Urine Glucose (UA) Negative Urine Ketones Trace Urine Blood Trace H Urine Nitrite Negative Ur Leukocyte Esterase Trace H Urine RBC 6-10 H Urine WBC 6-10 H Ur Squamous Epith Cells 3-5 Urine Bacteria None Seen Hyaline Casts >20 Salicylates Urine Opiates Screen Urine Fentanyl Screen Acetaminophen Ur Barbiturates Screen Ur Phencyclidine Scrn Ur Amphetamines Screen U Benzodiazepines Scrn Urine Cocaine Screen U Marijuana (THC) Screen Ethyl Alcohol COVID-19 (JANELLE) COVID-19 Clin Com Blood Type O Positive Antibody Screen NEGATIVE Crossmatch See Detail 10/13/22 10/13/22 10/13/22 17:48 18:18 20:52 MCV MCH MCHC RDW Plt Count MPV Immature Gran % (Auto) Neut % (Auto) Lymph % (Auto) [place] % (Auto) Eos % (Auto) Baso % (Auto) Lymph # (Auto) [place] # (Auto) Eos # (Auto) Baso # (Auto) Abs Immat Gran (auto) Absolute Neuts (auto) Absolute Nucleated RBC Nucleated RBC % (auto) Smear Tech's Comments PT INR APTT VBG pH VBG pCO2 VBG pO2 VBG HCO3 VBG O2 Saturation VBG Base Excess Anion Gap 30 H Estim Creat Clear Calc 32.6 Estimated GFR 34 Random Glucose 77 Lactic Acid Lactic Acid F/U @ 2Hr 12.8 H* Calcium 7.9 L Magnesium 2.2 Total Bilirubin 4.4 H Direct Bilirubin 3.2 H AST 4133 H ALT 1045 H Alkaline Phosphatase 327 H Ammonia Troponin I High Sens B-Natriuretic Peptide Total Protein 6.0 L Albumin 1.9 L Lipase 78 TSH Urine Color Urine Appearance Urine pH Ur Specific [place] Urine Protein Urine Glucose (UA) Urine Ketones Urine Blood Urine Nitrite Ur Leukocyte Esterase Urine RBC Urine WBC Ur Squamous Epith Cells Urine Bacteria Hyaline Casts Salicylates 5.6 L Urine Opiates Screen Not Detected Urine Fentanyl Screen Not Detected Acetaminophen < 17 Ur Barbiturates Screen Not Detected Ur Phencyclidine Scrn Not Detected Ur Amphetamines Screen Not Detected U Benzodiazepines Scrn Not Detected Urine Cocaine Screen Not Detected U Marijuana (THC) Screen Not Detected Ethyl Alcohol COVID-19 (JANELLE) COVID-19 Clin Com Blood Type Antibody Screen Crossmatch ECG Attestation: I personally reviewed and interpreted this ECG as follows: (Normal Sinus Rhythm. HR 93. No previous for comparison.) Imaging Radiologist's Impressions: Impressions Chest X-Ray 10/13/22 15:30 IMPRESSION: A few regions of ill-defined opacity seen bilaterally which may be related to atelectasis or pneumonitis. Head CT 10/13/22 17:38 IMPRESSION: No CT evidence of acute intracranial hemorrhage or edematous territorial infarction. Right sphenoid sinus disease. Chronic changes as detailed above. Abdomen/Pelvis CT 10/13/22 17:40 IMPRESSION: This exam is significantly abnormal. I've no previous exams to compare. Numerous areas of lung nodularity which would be suspicious for metastatic disease. Liver is markedly abnormal suspicious for diffuse tumor and 2 large areas of more concentrated masslike change are occurring and the more inferior of these shows lobular areas of contrast accumulation similar to the adjacent large vasculature. This could represent several areas of active bleeding into tumor As stated there is significant mass effect on the vena cava and the liver process is likely invading the vena cava. The may be inclusion at the level of the diaphragmatic hiatus. Mild ascites is present. Nonobstructing bowel pattern. This critical result was discussed with Dr. Villegas at 6:54 PM on 10/13/2022 and it was ascertained that the content and urgency of the report was understood at the time of direct communication. Chest X-Ray 10/13/22 18:15 IMPRESSION: * Right central line catheter tip projecting over the right atrium. * Redemonstration of mild patchy interstitial opacification, possibly mild interstitial pneumonitis. * No pleural effusion. Chest X-Ray 10/13/22 20:34 IMPRESSION: 1. Interval placement of an endotracheal tube with its tip approximately 2 cm proximal to the gabby. Enterogastric tube and right-sided central venous catheter in appropriate position. 2. Mild left perihilar opacities, slightly decreased and likely representing atelectasis. Assessment and Plan (1) Cancer of liver: Status: Acute (2) Acute GI bleeding: Status: Acute (3) Anemia: Status: Acute (4) Acute hyperkalemia: Status: Acute (5) Acute kidney injury: Status: Acute (6) Transaminitis: Status: Acute (7) Hypoalbuminemia: Status: Acute (8) Alcohol abuse: Status: Acute Plan Plan: ? The patient is 72-year-old male with a past medical history of alcoholism, asthma, hepatitis-C, who? presented? with altered mental status likely due to acute GI bleed, liver cancer, hyperkalemia, DONYA, transaminitis. Neuro: Metabolic encephalopathy-? patient? is oriented x3 at baseline per family, now unable to answer questions. Likely due to hypovolemic shock, metastasis. Cardiac: ?Hypovolemic shock-? patient has significantly elevated lactic acid, elevated white count, DONYA, positive stool occult blood.? Family reports he vomited blood yesterday.? Abdominal CT showed large liver mass, likely has metastasis, the liver mass is obstructing the vena cava and the right adrenal gland.? EKG showed normal sinus rhythm with nonspecific? ST abnormality.? No previous ECGs for comparison. Continue volume replacement. Pulmonary: ?Chest x-ray showed mild patchy interstitial opacification, possibly mild interstitial pneumonitis.? Continue antibiotics. Renal: DONYA- most likely related to hypoperfusion, nonoliguric. 3L normal saline, transfusion started in the ER.? Hyperkalemia - given D10, insulin, calcium gluconate. Continue to check renal induces and urine output. Endo: ?No acute issues.?? GI: CT showed large liver mass, likely has metastasis, the liver mass is obstructing the vena cava and the right adrenal gland. Active GI Bleed. Stool? occult blood positive.? Report of vomiting blood yesterday. Elevated Ammonia. Transaminitis. Hypoalbuminemia.? Received PPI, octreotide, lactulose in ER. Continue PPI. Replace albumin. Continue to trend LFTs.? GI service care appreciated. ID: Elevated lactic acid, elevated white count, DONYA likely due to hypovolemia. ? He did receive 3 L in the ER? and empiric antibiotics.? Recheck lactic acid.? Continue antibiotics.?Sodium Bicarb for acidosis. Urine and blood cultures pending. Heme/Onc: Acute anemia due to GI Bleed. Transfusion in progress. Recheck H/H, transfuse as indicated. Finding of large liver mass with likely metastasis. MRI dated 06/18/2014 showed 3 cm lesion in segment 7 of the liver consistent with hepatocellular carcinoma. Unclear if patient received any treatment; there are no records of such at this facility.? Oncology service care appreciated. Psych:? No acute issues. Prophylaxis: Pneumatic hoses, PPI Diet:? NPO? Time Spent With Patient Time: Total time managing care of this patient today ____ minutes.
[2022-10-13] MEDS: Norepinephrine Bitartrate/D5W 8 MG/250 ML PLAST..BAG 13.11 MG IV (21:36)
--- NOTE | 2022-10-13 22:28 | PC.NURSE ---
PT TO ICU AT 2109 UNRESPONSIVE ON VENT ASSIST CONTROL SETTINGS. NO RESP DIFFICULTIES. FIO2 DECREASED BY RESP THERAPIST, NOW AT 28%. O2 SAT IS 98-100%. ETT 7.5 AT 25 CM LIP SHILOH. PROPOFOL INFUSING AT 50 MCG/KG/MIN. BICARB DRIP ORDERED. TLC INTACT RIJ. PERIPHERAL LINE #20 LEFT AC. CALCIUM GLUC FINISHING. BP LOW 78/27, 84/44. LEVOPHED DRIP STARTED WITH IMPROVEMENT OF BP; CURRENTLY AT 0.1 MCG/KG/MIN. MONITOR SHOWS NSR, RATE 80'S-90'S, NO ECTOPY. FERREIRA OUTPUT ON ARRIVAL TO ICU 200 ML. OGT TO INTERMITTENT WALL SUCTION; OGT OUTPUT IS DARK BROWN, APPROX 300 ML. LIQUID DARK BROWN STOOL NOTED. RECTAL TUBE INSERTED. SECOND UNIT OF BLOOD CURRENTLY INFUSING. AFEBRILE.
[2022-10-13 22:55] LABS: Reflex Lactate? 2 Y
[2022-10-13 23:22] LABS: Glucose, Whole Blood 75 mg/dL (60-115)
[2022-10-13 23:42] LABS: VBG Base Excess -4.3 mmol/L; VBG HCO3 19 mmol/L (22-26); VBG pCO2 31 mmHg; VBG pH 7.39 (7.32-7.43); VBG pO2 47 mmHg
[2022-10-13 23:43] LABS: Hematocrit 21.8 % (42.0-52.0); Mean Corpuscular HGB Conc 32.1 g/dl (31.0-36.0); Mean Corpuscular Hemoglobin 30.8 pg (27.0-33.0); Mean Platelet Volume 11.8 fL (9.4-12.4); NRBC Pct Auto 1.2 /100WBC (0.0-0.2); Platelet Count 252 X10*3/uL (160-400); Red Blood Count 2.27 X10*6/uL (4.60-5.80); Red Cell Distribution Width 17.8 % (11.0-16.0); White Blood Count 13.4 X10*3/uL (4.8-10.8)
[2022-10-13 23:53] LABS: Venous Blood Gas Refer to POC result
[2022-10-14] VITALS (57 sets, daily range): BP systolic 68–120; BP diastolic 30–64; PULSE 85–107; RESP 16–22; TEMP 32–38.7; O2SAT 90–98; BMI 23.3
[2022-10-14 00:04] LABS: ~Lactic Acid-LAB USE ONLY 10.1 mmol/L (0.5-2.0)
[2022-10-14 00:16] LABS: Anion Gap 25 (12-20); Blood Urea Nitrogen 76 mg/dL (9-16); Calcium 7.7 mg/dL (8.4-10.2); Carbon Dioxide 17 mmol/L (22-29); Chloride 107 mmol/L (96-108); Creatinine Clr Calc Pharmacy 31.4; Estimated Glomerular Filt Rate 32; Glucose Random 81 mg/dL (60-115); Potassium 5.5 mmol/L (3.3-5.1); Sodium 143 mmol/L (135-145)
[2022-10-14] MEDS: Albumin Human 25 % 100 ML IV ×4 (00:36→08:03)
[2022-10-14] MEDS: fentaNYL citrate/NS 1,000 MCG/100 ML PLAST..BAG 2.5 MCG IVCONT ×2 (00:40→23:56)
[2022-10-14] MEDS: Piperacillin Sodium/Tazobactam 3.375 GM in 0.9 % Sodium Chloride 50 ML IV ×5 (00:47→23:59)
[2022-10-14] MEDS: propofoL 1,000 MG/100 ML VIAL 20.97 MG IVCONT ×6 (02:09→22:06)
[2022-10-14] MEDS: Sodium Bicarbonate 8.4% 150 MEQ in Dextrose 5 % 850 ML 100 MEQ IV (04:54)
[2022-10-14 04:56] LABS: MANUAL DIFF FLAG NO
[2022-10-14 04:58] LABS: Basophils Percent Auto 0.3 % (0-2); Eosinophils Percent Auto 0.1 % (0-4); Hematocrit 21.4 % (42.0-52.0); Hemoglobin 7.3 g/dl (14.0-18.0); Lymphocytes Absolute Auto 1.5 X10*3/uL (1.2-4.9); Lymphocytes Percent Auto 15.3 % (20-40); Mean Corpuscular HGB Conc 34.1 g/dl (31.0-36.0); Mean Corpuscular Hemoglobin 32.4 pg (27.0-33.0); Mean Corpuscular Volume 95.1 fL (80.0-98.0); Mean Platelet Volume 11.6 fL (9.4-12.4); Monocytes Absolute Auto 0.7 X10*3/uL (0.1-1.2); NRBC Pct Auto 3.4 /100WBC (0.0-0.2); Neutrophils Absolute Auto 7.4 x10*3/uL (2.0-8.3); Neutrophils Percent Auto 76.3 % (45-73); Platelet Count 194 X10*3/uL (160-400); Red Blood Count 2.25 X10*6/uL (4.60-5.80); Red Cell Distribution Width 17.1 % (11.0-16.0); White Blood Count 9.7 X10*3/uL (4.8-10.8)
[2022-10-14 05:02] LABS: VBG Base Excess 6.1 mmol/L; VBG HCO3 29 mmol/L (22-26); VBG pCO2 36 mmHg; VBG pH 7.51 (7.32-7.43); VBG pO2 51 mmHg
[2022-10-14 05:04] LABS: Venous Blood Gas Refer to POC result
[2022-10-14 05:05] LABS: Ammonia 226 umol/L (13-55)
[2022-10-14] MEDS: Pantoprazole Sodium 40 MG/10 ML VIAL IVPUSH ×2 (05:31→17:13)
--- NOTE | 2022-10-14 05:48 | PC.NURSE ---
CONTINUES ON SAME AC VENT SETTINGS. NO RESP DISTRESS. O2 SAT 98-100%. MONITOR SHOWS NSR, 80-90'S, RARE PVC NOTED. BP STABLE ON LEVOPHED. WAS STARTED ON FENTANYL CONTINUOUS DRIP FOR PAIN PT WOULD HAVE INCREASED MOVEMENT OF LEGS AND ABD TENDERNESS ON PALPATION. OGT DRAINED A TOTAL OF 625 ML OF DARK BROWN OUTPUT SINCE ARRIVAL TO UNIT. FERREIRA OUTPUT 10-40ML/HR. RECTAL TUBE WITH APPROX 100 MLL OUTPUT. HGB AT 0448 WAS 7.3 (AFTER 3 UNITS LRBC'S). PROVIDER TO RE ORDER CBC IN 4-5 HOURS. AMMONIA THIS MORNING IS 226. PT TO GET LACTULOSE [place]. NO LACTULOSE AVAILABLE IN [place]. WAITING FOR PHARMACY TO BRING MED.
[2022-10-14 06:01] LABS: Alanine Aminotransferase 1468 U/L (0-40); Albumin Level 2.5 g/dL (3.5-5.0); Alkaline Phosphatase 351 U/L (39-117); Anion Gap 18 (12-20); Bilirubin Total 7.6 mg/dL (0.0-1.0); Blood Urea Nitrogen 80 mg/dL (9-16); Calcium 7.7 mg/dL (8.4-10.2); Carbon Dioxide 24 mmol/L (22-29); Chloride 105 mmol/L (96-108); Estimated Glomerular Filt Rate 32; Glucose Random 81 mg/dL (60-115); Magnesium 1.9 mg/dL (1.6-2.6); Phosphorus 5.9 mg/dL (2.7-4.5); Potassium 4.9 mmol/L (3.3-5.1); Sodium 142 mmol/L (135-145); Total Protein 6.1 g/dL (6.5-8.0)
[2022-10-14 06:16] LABS: Aspartate Amino Transferase > 4202 U/L (5-37)
[2022-10-14] MEDS: Dextrose 5 % and Lactated Ring 1,000 ML 100 ML IVCONT ×3 (06:37→23:28)
[2022-10-14] MEDS: Lactulose 320 GM/480 ML SOLUTION 200 GM PR (07:31)
[2022-10-14] MEDS: Chlorhexidine Gluc Oral Rinse 15 ML MOUTHWASH BUCCAL ×3 (07:31→20:14)
--- NOTE | 2022-10-14 08:22 | PM.HEMONCCN ---
Subjective - Subjective Primary Care Provider: Chris Lopez MD HPI - Consult Narrative Narrative: Jeet Ruiz is a 72 year old male [facility] Medical History: Medical History (Last Reviewed 10/14/22 @ 02:55 by Kaylee Ramirez, RENA) Alcohol abuse Asthma Hepatitis C Social History: Social History (Last Updated 10/14/22 @ 02:56 by Kaylee Ramirez, RENA) Alcohol History Details: Currently Displaying Signs/Symptoms of Alcohol Withdrawal: No Substance Use History: Currently Displaying Signs/Symptoms of Drug Intoxication Withdrawal: No Advance Directives: Advance Directives: No Advance Directives Information Provided: No Home Medications and Allergies Current Medications: Current Medications Chlorhexidine Gluconate (Chlorhexidine Gluc Oral Rinse 15 Ml Mouthwash) 15 ml BUCCAL TID SCOTT Last Admin: 10/14/22 07:31 Dose: 15 ml Propofol (Diprivan) 1,000 mg in 100 mls @ 0 mls/hr IVCONT .Q0M SCOTT; Protocol Last Admin: 10/14/22 06:26 Dose: 50 mcg/kg/min, 20.97 mls/hr Dextrose (D10) 250 mls @ 750 mls/hr IV Q15M PRN PRN Reason: per Hypoglycemia Standing Ord. Piperacillin Sod/Tazobactam (Sod 3.375 gm/ Sodium Chloride) 50 mls @ 100 mls/hr IV Q6H SCOTT Last Infusion: 10/14/22 06:38 Dose: Infused Norepinephrine Bitartrate (Levophed) 8 mg in 250 mls @ 0 mls/hr IV .Q0M SCOTT; Protocol Last Titration: 10/14/22 06:27 Dose: 0.2 mcg/kg/min, 26.21 mls/hr Fentanyl (Sublimaze/Ns) 1,000 mcg in 100 mls @ 0 mls/hr IVCONT .Q0M SCOTT; Protocol Last Admin: 10/14/22 00:40 Dose: 25 mcg/hr, 2.5 mls/hr Dextrose/Lactated Ringer's (D5lr) 1,000 mls @ 100 mls/hr IVCONT .Q10H SCOTT Last Admin: 10/14/22 06:37 Dose: 100 mls/hr Naloxone HCl (Naloxone Hcl 0.4 Mg/Ml Vial) 0.2 mg IVPUSH Q2M PRN PRN Reason: Excessive sedation or RR < 8 Pantoprazole Sodium (Pantoprazole Sodium 40 Mg/10 Ml Vial) 40 mg IVPUSH BID@0630,1630 [facility] Last Admin: 10/14/22 05:31 Dose: 40 mg Home Medications Medication Instructions Recorded Confirmed Type Unobtainable 10/13/22 10/13/22 History Allergies Allergy/AdvReac Type Severity Reaction Status Date / Time No Known Allergies Allergy Unverified 01/31/20 15:07 Physical Exam Vital signs: Vital Signs Temp 101.1 F H 10/14/22 08:00 Pulse 105 H 10/14/22 08:00 Resp 19 10/14/22 08:00 BP 104/54 L 10/14/22 08:00 Pulse Ox 94 10/14/22 08:00 O2 Del Method Mechanical Ventilation 10/14/22 08:00 FiO2 40 10/14/22 08:00 Intake & Output 10/13/22 10/14/22 10/14/22 18:59 06:59 18:59 Intake Total 0 / 7181.158 7181.158 / 7181.158 100 / 100 Output Total 1075 / 1137 124 / 124 Balance 0 / 6044.158 6106.158 / 6044.158 -24 / -24 Urine Output (Average ml/kg/hr) 0.52 0.14 Intake: Intake, Tube Irrigant Amount 190 / 190 Intake (Blood Product) Amount 0 / 1050 1050 / 1050 Red Blood Cells (E0382) Unit 0 / 350 350 / 350 [id number] Red Blood Cells (E0382) Unit 350 / 350 [id number] Red Blood Cells (E0382) Unit 350 / 350 [id number] Intake, Other Amount 250 / 250 Red Blood Cells (E0382) Unit 250 / 250 [id number] Intake, IV Amount 5691.158 / 5691.158 100 / 100 Albumin Human 25 % 100 ml @ 100 198.333 / 198.333 100 / 100 mls/hr IV Q1H [facility] Rx#: [id number] Calcium Gluconate/NaCl,Iso-Osm 100 / 100 2 gm In 100 ml @ 50 mls/hr IV ONCE ONE Rx#:[id number] Norepinephrine Bitartrate/D5W 8 129.866 / 129.866 mg In 250 ml @ Per Protocol IV .Q0M SCOTT Rx#:[id number] Piperacillin Sodium/Tazobactam 150 / 150 3.375 gm In 0.9 % Sodium Chloride 50 ml @ 100 mls/hr IV Q6H SCOTT Rx#:[id number] Sodium Bicarbonate 8.4% 150 meq 861.667 / 861.667 In Dextrose 5 % 850 ml @ 100 mls/hr IV .Q10H [facility]OTT Rx#: [id number] 0.9 % Sodium Chloride 3,000 ml 4000 / 4000 @ 999 mls/hr IVCONT .Q3H1M ONE Rx#:[id number] propofoL 1,000 mg In 100 ml @ 251.292 / 251.292 Per Protocol IVCONT .Q0M SCOTT Rx #:[id number] Output: Output, Urine Amount (Catheter) 450 / 512 124 / 124 Urethral 450 / 512 124 / 124 Output, Gastric Drainage Amount 625 / 625 Oral 625 / 625 Other: Last Bowel Movement 10/14/22 Weight 69.9 kg 71.5 kg Weight in Grams 67583 25111 Weight 71.5 kg Hem/Onc Consult Result - Labs CBC & Chem 7: 10/14/22 04:48 10/14/22 04:48 Labs: Short CBC 10/13/22 10/13/22 10/14/22 Range/Units 16:16 23:35 04:48 WBC 16.8 H 13.4 H 9.7 (4.8-10.8) X10*3/uL Hgb 5.7 L* 7.0 L* D 7.3 L (14.0-18.0) g/dl Hct 18.9 L* 21.8 L 21.4 L (42.0-52.0) % Plt Count 396 252 D 194 (160-400) X10*3/uL BMP 10/13/22 10/13/22 10/14/22 18:18 23:35 04:48 Sodium 140 143 142 Potassium 6.4 H* 5.5 H 4.9 Chloride 106 107 105 Carbon Dioxide 10 L* 17 L 24 BUN 76 H 76 H 80 H Creatinine 1.96 H 2.04 H 2.02 H Calcium 7.9 L 7.7 L 7.7 L Liver Function 10/13/22 10/14/22 Range/Units 18:18 04:48 Total Bilirubin 4.4 H 7.6 H (0.0-1.0) mg/dL Direct Bilirubin 3.2 H (0.0-0.5) mg/dL AST 4133 H > 4202 H (5-37) U/L ALT 1045 H 1468 H (0-40) U/L Alkaline Phosphatase 327 H 351 H (39-117) U/L Albumin 1.9 L 2.5 L (3.5-5.0) g/dL Urine 10/13/22 Range/Units 17:48 Urine Color Dark Yellow Urine Appearance Cloudy Urine pH 5.5 (5.0-9.0) Ur Specific [place] 1.025 (1.005-1.025) Urine Protein 30 (1+) H (Neg-Trace) mg/dL Urine Glucose (UA) Negative (Negative) mg/dL Assessment and Plan Patient Active problem list reviewed?: Yes (1) Cancer of liver Status: Acute
--- NOTE | 2022-10-14 08:35 | PM.CCPN ---
Subjective Subjective Date of Service: 10/14/22 Interval History: 72-year-old gentleman with underlying alcoholism, hepatitis-C, known hepatocellular carcinoma, previously followed up by [facility] oncology/GI, noncompliant with treatments admitted on 10/13/2022 with alteration of mental status and subacute anemia secondary to upper GI bleed requiring intubation and ventilatory support. On ER evaluation patient with metabolic acidosis, acute renal failure, imaging consistent with metastatic liver cancer with the vena cava involvement. Admitted is intensive care unit, started on blood product resuscitation and bicarbonate drip with improvement in blood counts and metabolic acidosis. Evaluated by Gastroenterology and Oncology services with essentially no options for further treatment available. Critical Care Time (minutes): 90 Physical Exam Vital Signs: Vital Signs: Last Vital Signs Temp 101.1 F H 10/14/22 08:00 Pulse 105 H 10/14/22 08:00 Resp 19 10/14/22 08:00 BP 104/54 L 10/14/22 08:00 Pulse Ox 94 10/14/22 08:00 O2 Del Method Mechanical Ventil ation 10/14/22 08:00 FiO2 40 10/14/22 08:00 BMI result Body Mass Index 23.3 Const: General: no acute distress and other (Sedated on the vent, jaundiced) Eyes: Sclerae: sclerae normal Neck: Neck: Yes no lymphadenopathy, Yes trachea midline and Yes supple Resp: Auscultation: crackles (Mild bilateral) Cardio: Rate: tachycardic Rhythm: regular rhythm Heart sounds: no gallops, no murmurs and no rubs GI: Palpation (GI): Soft to palpation and Other GI palpation findings present ( Nontender) Auscultation: normal bowel sounds Extrem: General: Yes no pedal edema, No clubbing and No cyanosis Objective Data Labs 10/14/22 04:48 10/14/22 04:48 Labs: Laboratory Results - last 24 hr 10/13/22 10/13/22 10/13/22 16:16 16:16 16:16 WBC 16.8 H RBC 1.86 L Hgb 5.7 L* Hct 18.9 L* MCV 101.6 H MCH 30.6 MCHC 30.2 L RDW 20.1 H Plt Count 396 MPV 13.4 H Immature Gran % (Auto) 2.6 H Neut % (Auto) 74.9 H Lymph % (Auto) 13.0 L [place] % (Auto) 9.4 Eos % (Auto) 0.0 Baso % (Auto) 0.1 Lymph # (Auto) 2.2 [place] # (Auto) 1.6 H Eos # (Auto) 0.0 Baso # (Auto) 0.0 Abs Immat Gran (auto) 0.44 H Absolute Neuts (auto) 12.6 H Absolute Nucleated RBC 0.090 H Nucleated RBC % (auto) 0.5 H Smear Tech's Comments VERIFIED PT 26.2 H INR 2.2 H APTT VBG pH VBG pCO2 VBG pO2 VBG HCO3 VBG O2 Saturation VBG Base Excess Sodium Potassium Chloride Carbon Dioxide Anion Gap BUN Creatinine Estim Creat Clear Calc Estimated GFR POC Glucose Random Glucose Lactic Acid 16.7 H* Lactic Acid F/U @ 2Hr Lactic Acid F/U @ 4Hr Calcium Phosphorus Magnesium Total Bilirubin Direct Bilirubin AST ALT Alkaline Phosphatase Ammonia Troponin I High Sens B-Natriuretic Peptide Total Protein Albumin Lipase TSH Urine Color Urine Appearance Urine pH Ur Specific [place] Urine Protein Urine Glucose (UA) Urine Ketones Urine Blood Urine Nitrite Ur Leukocyte Esterase Urine RBC Urine WBC Ur Squamous Epith Cells Urine Bacteria Hyaline Casts Salicylates Urine Opiates Screen Urine Fentanyl Screen Acetaminophen Ur Barbiturates Screen Ur Phencyclidine Scrn Ur Amphetamines Screen U Benzodiazepines Scrn Urine Cocaine Screen U Marijuana (THC) Screen Ethyl Alcohol COVID-19 (JANELLE) COVID-19 Clin Com Blood Type Antibody Screen Crossmatch 10/13/22 10/13/22 10/13/22 16:16 16:16 16:16 WBC RBC Hgb Hct MCV MCH MCHC RDW Plt Count MPV Immature Gran % (Auto) Neut % (Auto) Lymph % (Auto) [place] % (Auto) Eos % (Auto) Baso % (Auto) Lymph # (Auto) [place] # (Auto) Eos # (Auto) Baso # (Auto) Abs Immat Gran (auto) Absolute Neuts (auto) Absolute Nucleated RBC Nucleated RBC % (auto) Smear Tech's Comments PT INR APTT VBG pH VBG pCO2 VBG pO2 VBG HCO3 VBG O2 Saturation VBG Base Excess Sodium Potassium Chloride Carbon Dioxide Anion Gap BUN Creatinine Estim Creat Clear Calc Estimated GFR POC Glucose Random Glucose Lactic Acid Lactic Acid F/U @ 2Hr Lactic Acid F/U @ 4Hr Calcium Phosphorus Magnesium Total Bilirubin Direct Bilirubin AST ALT Alkaline Phosphatase Ammonia 216 H Troponin I High Sens 7.6 B-Natriuretic Peptide Total Protein Albumin Lipase TSH Urine Color Urine Appearance Urine pH Ur Specific [place] Urine Protein Urine Glucose (UA) Urine Ketones Urine Blood Urine Nitrite Ur Leukocyte Esterase Urine RBC Urine WBC Ur Squamous Epith Cells Urine Bacteria Hyaline Casts Salicylates Urine Opiates Screen Urine Fentanyl Screen Acetaminophen Ur Barbiturates Screen Ur Phencyclidine Scrn Ur Amphetamines Screen U Benzodiazepines Scrn Urine Cocaine Screen U Marijuana (THC) Screen Ethyl Alcohol COVID-19 (JANELLE) Negative COVID-19 Clin Com See Note Blood Type Antibody Screen Crossmatch 10/13/22 10/13/22 10/13/22 16:16 16:16 16:55 WBC RBC Hgb Hct MCV MCH MCHC RDW Plt Count MPV Immature Gran % (Auto) Neut % (Auto) Lymph % (Auto) [place] % (Auto) Eos % (Auto) Baso % (Auto) Lymph # (Auto) [place] # (Auto) Eos # (Auto) Baso # (Auto) Abs Immat Gran (auto) Absolute Neuts (auto) Absolute Nucleated RBC Nucleated RBC % (auto) Smear Tech's Comments PT INR APTT 31.9 VBG pH VBG pCO2 VBG pO2 VBG HCO3 VBG O2 Saturation VBG Base Excess Sodium Potassium Chloride Carbon Dioxide Anion Gap BUN Creatinine Estim Creat Clear Calc Estimated GFR POC Glucose Random Glucose Lactic Acid Lactic Acid F/U @ 2Hr Lactic Acid F/U @ 4Hr Calcium Phosphorus Magnesium Total Bilirubin Direct Bilirubin AST ALT Alkaline Phosphatase Ammonia Troponin I High Sens B-Natriuretic Peptide 104 H Total Protein Albumin Lipase TSH 0.97 Urine Color Urine Appearance Urine pH Ur Specific [place] Urine Protein Urine Glucose (UA) Urine Ketones Urine Blood Urine Nitrite Ur Leukocyte Esterase Urine RBC Urine WBC Ur Squamous Epith Cells Urine Bacteria Hyaline Casts Salicylates Urine Opiates Screen Urine Fentanyl Screen Acetaminophen Ur Barbiturates Screen Ur Phencyclidine Scrn Ur Amphetamines Screen U Benzodiazepines Scrn Urine Cocaine Screen U Marijuana (THC) Screen Ethyl Alcohol < 10 COVID-19 (JANELLE) COVID-19 Clin Com Blood Type Antibody Screen Crossmatch 10/13/22 10/13/22 10/13/22 16:55 17:04 17:48 WBC RBC Hgb Hct MCV MCH MCHC RDW Plt Count MPV Immature Gran % (Auto) Neut % (Auto) Lymph % (Auto) [place] % (Auto) Eos % (Auto) Baso % (Auto) Lymph # (Auto) [place] # (Auto) Eos # (Auto) Baso # (Auto) Abs Immat Gran (auto) Absolute Neuts (auto) Absolute Nucleated RBC Nucleated RBC % (auto) Smear Tech's Comments PT INR APTT VBG pH 7.34 VBG pCO2 20 VBG pO2 56 VBG HCO3 11 L VBG O2 Saturation TNP VBG Base Excess -13.0 Sodium Potassium Chloride Carbon Dioxide Anion Gap BUN Creatinine Estim Creat Clear Calc Estimated GFR POC Glucose Random Glucose Lactic Acid Lactic Acid F/U @ 2Hr Lactic Acid F/U @ 4Hr Calcium Phosphorus Magnesium Total Bilirubin Direct Bilirubin AST ALT Alkaline Phosphatase Ammonia Troponin I High Sens B-Natriuretic Peptide Total Protein Albumin Lipase TSH Urine Color Dark Yellow Urine Appearance Cloudy Urine pH 5.5 Ur Specific [place] 1.025 Urine Protein 30 (1+) H Urine Glucose (UA) Negative Urine Ketones Trace Urine Blood Trace H Urine Nitrite Negative Ur Leukocyte Esterase Trace H Urine RBC 6-10 H Urine WBC 6-10 H Ur Squamous Epith Cells 3-5 Urine Bacteria None Seen Hyaline Casts >20 Salicylates Urine Opiates Screen Urine Fentanyl Screen Acetaminophen Ur Barbiturates Screen Ur Phencyclidine Scrn Ur Amphetamines Screen U Benzodiazepines Scrn Urine Cocaine Screen U Marijuana (THC) Screen Ethyl Alcohol COVID-19 (JANELLE) COVID-19 Clin Com Blood Type O Positive Antibody Screen NEGATIVE Crossmatch See Detail 10/13/22 10/13/22 10/13/22 17:48 18:18 20:52 WBC RBC Hgb Hct MCV MCH MCHC RDW Plt Count MPV Immature Gran % (Auto) Neut % (Auto) Lymph % (Auto) [place] % (Auto) Eos % (Auto) Baso % (Auto) Lymph # (Auto) [place] # (Auto) Eos # (Auto) Baso # (Auto) Abs Immat Gran (auto) Absolute Neuts (auto) Absolute Nucleated RBC Nucleated RBC % (auto) Smear Tech's Comments PT INR APTT VBG pH VBG pCO2 VBG pO2 VBG HCO3 VBG O2 Saturation VBG Base Excess Sodium 140 Potassium 6.4 H* Chloride 106 Carbon Dioxide 10 L* Anion Gap 30 H BUN 76 H Creatinine 1.96 H Estim Creat Clear Calc 32.6 Estimated GFR 34 POC Glucose Random Glucose 77 Lactic Acid Lactic Acid F/U @ 2Hr 12.8 H* Lactic Acid F/U @ 4Hr Calcium 7.9 L Phosphorus Magnesium 2.2 Total Bilirubin 4.4 H Direct Bilirubin 3.2 H AST 4133 H ALT 1045 H Alkaline Phosphatase 327 H Ammonia Troponin I High Sens B-Natriuretic Peptide Total Protein 6.0 L Albumin 1.9 L Lipase 78 TSH Urine Color Urine Appearance Urine pH Ur Specific [place] Urine Protein Urine Glucose (UA) Urine Ketones Urine Blood Urine Nitrite Ur Leukocyte Esterase Urine RBC Urine WBC Ur Squamous Epith Cells Urine Bacteria Hyaline Casts Salicylates 5.6 L Urine Opiates Screen Not Detected Urine Fentanyl Screen Not Detected Acetaminophen < 17 Ur Barbiturates Screen Not Detected Ur Phencyclidine Scrn Not Detected Ur Amphetamines Screen Not Detected U Benzodiazepines Scrn Not Detected Urine Cocaine Screen Not Detected U Marijuana (THC) Screen Not Detected Ethyl Alcohol COVID-19 (JANELLE) COVID-19 Clin Com Blood Type Antibody Screen Crossmatch 10/13/22 10/13/22 10/13/22 23:19 23:33 23:35 WBC RBC Hgb Hct MCV MCH MCHC RDW Plt Count MPV Immature Gran % (Auto) Neut % (Auto) Lymph % (Auto) [place] % (Auto) Eos % (Auto) Baso % (Auto) Lymph # (Auto) [place] # (Auto) Eos # (Auto) Baso # (Auto) Abs Immat Gran (auto) Absolute Neuts (auto) Absolute Nucleated RBC Nucleated RBC % (auto) Smear Tech's Comments PT INR APTT VBG pH 7.39 VBG pCO2 31 VBG pO2 47 VBG HCO3 19 L VBG O2 Saturation 78.0 VBG Base Excess -4.3 Sodium Potassium Chloride Carbon Dioxide Anion Gap BUN Creatinine Estim Creat Clear Calc Estimated GFR POC Glucose 75 Random Glucose Lactic Acid Lactic Acid F/U @ 2Hr Lactic Acid F/U @ 4Hr 10.1 H* Calcium Phosphorus Magnesium Total Bilirubin Direct Bilirubin AST ALT Alkaline Phosphatase Ammonia Troponin I High Sens B-Natriuretic Peptide Total Protein Albumin Lipase TSH Urine Color Urine Appearance Urine pH Ur Specific [place] Urine Protein Urine Glucose (UA) Urine Ketones Urine Blood Urine Nitrite Ur Leukocyte Esterase Urine RBC Urine WBC Ur Squamous Epith Cells Urine Bacteria Hyaline Casts Salicylates Urine Opiates Screen Urine Fentanyl Screen Acetaminophen Ur Barbiturates Screen Ur Phencyclidine Scrn Ur Amphetamines Screen U Benzodiazepines Scrn Urine Cocaine Screen U Marijuana (THC) Screen Ethyl Alcohol COVID-19 (JANELLE) COVID-19 Clin Com Blood Type Antibody Screen Crossmatch 10/13/22 10/13/22 10/14/22 23:35 23:35 04:48 WBC 13.4 H RBC 2.27 L D Hgb 7.0 L* D Hct 21.8 L MCV 96.0 D MCH 30.8 MCHC 32.1 RDW 17.8 H Plt Count 252 D MPV 11.8 Immature Gran % (Auto) Neut % (Auto) Lymph % (Auto) [place] % (Auto) Eos % (Auto) Baso % (Auto) Lymph # (Auto) [place] # (Auto) Eos # (Auto) Baso # (Auto) Abs Immat Gran (auto) Absolute Neuts (auto) Absolute Nucleated RBC 0.160 H Nucleated RBC % (auto) 1.2 H Smear Tech's Comments PT INR APTT VBG pH VBG pCO2 VBG pO2 VBG HCO3 VBG O2 Saturation VBG Base Excess Sodium 143 142 Potassium 5.5 H 4.9 Chloride 107 105 Carbon Dioxide 17 L 24 Anion Gap 25 H 18 BUN 76 H 80 H Creatinine 2.04 H 2.02 H Estim Creat Clear Calc 31.4 32.0 Estimated GFR 32 32 POC Glucose Random Glucose 81 81 Lactic Acid Lactic Acid F/U @ 2Hr Lactic Acid F/U @ 4Hr Calcium 7.7 L 7.7 L Phosphorus 5.9 H Magnesium 1.9 Total Bilirubin 7.6 H Direct Bilirubin AST > 4202 H ALT 1468 H Alkaline Phosphatase 351 H Ammonia Troponin I High Sens B-Natriuretic Peptide Total Protein 6.1 L Albumin 2.5 L Lipase TSH Urine Color Urine Appearance Urine pH Ur Specific [place] Urine Protein Urine Glucose (UA) Urine Ketones Urine Blood Urine Nitrite Ur Leukocyte Esterase Urine RBC Urine WBC Ur Squamous Epith Cells Urine Bacteria Hyaline Casts Salicylates Urine Opiates Screen Urine Fentanyl Screen Acetaminophen Ur Barbiturates Screen Ur Phencyclidine Scrn Ur Amphetamines Screen U Benzodiazepines Scrn Urine Cocaine Screen U Marijuana (THC) Screen Ethyl Alcohol COVID-19 (JANELLE) COVID-19 Clin Com Blood Type Antibody Screen Crossmatch 10/14/22 10/14/22 10/14/22 04:48 04:48 04:53 WBC 9.7 RBC 2.25 L Hgb 7.3 L Hct 21.4 L MCV 95.1 MCH 32.4 MCHC 34.1 RDW 17.1 H Plt Count 194 MPV 11.6 Immature Gran % (Auto) 1.0 H Neut % (Auto) 76.3 H Lymph % (Auto) 15.3 L [place] % (Auto) 7.0 Eos % (Auto) 0.1 Baso % (Auto) 0.3 Lymph # (Auto) 1.5 [place] # (Auto) 0.7 Eos # (Auto) 0.0 Baso # (Auto) 0.0 Abs Immat Gran (auto) 0.10 H Absolute Neuts (auto) 7.4 Absolute Nucleated RBC 0.330 H Nucleated RBC % (auto) 3.4 H Smear Tech's Comments PT INR APTT VBG pH 7.51 H VBG pCO2 36 VBG pO2 51 VBG HCO3 29 H VBG O2 Saturation 85.0 VBG Base Excess 6.1 Sodium Potassium Chloride Carbon Dioxide Anion Gap BUN Creatinine Estim Creat Clear Calc Estimated GFR POC Glucose Random Glucose Lactic Acid Lactic Acid F/U @ 2Hr Lactic Acid F/U @ 4Hr Calcium Phosphorus Magnesium Total Bilirubin Direct Bilirubin AST ALT Alkaline Phosphatase Ammonia 226 H Troponin I High Sens B-Natriuretic Peptide Total Protein Albumin Lipase TSH Urine Color Urine Appearance Urine pH Ur Specific [place] Urine Protein Urine Glucose (UA) Urine Ketones Urine Blood Urine Nitrite Ur Leukocyte Esterase Urine RBC Urine WBC Ur Squamous Epith Cells Urine Bacteria Hyaline Casts Salicylates Urine Opiates Screen Urine Fentanyl Screen Acetaminophen Ur Barbiturates Screen Ur Phencyclidine Scrn Ur Amphetamines Screen U Benzodiazepines Scrn Urine Cocaine Screen U Marijuana (THC) Screen Ethyl Alcohol COVID-19 (JANELLE) COVID-19 Clin Com Blood Type Antibody Screen Crossmatch Microbiology Microbiology Results: Microbiology 10/13/22 18:32 Urine Catheterized - Brennan Catheter Urine Culture - Preliminary No growth to date. 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: Status: Acute (2) Acute renal failure: Status: Acute (3) Acute respiratory failure: Status: Acute (4) Acute liver failure with hepatic coma: Status: Acute (5) Metabolic encephalopathy: Status: Acute (6) Coagulopathy: Status: Acute (7) Hepatitis C: Status: Acute (8) Alcohol abuse: Status: Acute (9) History of noncompliance with medical treatment: Status: Acute Plan Assessment: 72-year-old gentleman with underlying metastatic hepatocellular carcinoma admitted with acute metabolic encephalopathy, subacute anemia, upper GI bleed on the background of acute liver failure with acute renal failure now requiring ventilatory support. Plan: Neuro: Metabolic encephalopathy secondary to acute liver failure overall prognosis for recovery is negligible. Cardiac: No acute issues. Pulmonary: Acute respiratory failure secondary to acute metabolic encephalopathy intubated for airway protection. Continue ventilatory support. Renal: Acute renal failure with metabolic acidosis on the background of acute liver failure. Hepatorenal syndrome. Improved with bicarbonate drip. Continue to monitor renal indices and urine output. Endo: No acute issues. GI: Acute liver failure on the background of metastatic hepatocellular carcinoma. Gastroenterology service care appreciated. Acute to subacute GI bleed. Continue on PPI and octreotide. Not a candidate for interventions. ID: No acute issues Heme/Onc: Known hepatocellular carcinoma, now with vena cava involvement and metastatic to the lung. Oncology service care appreciated. Previously followed by [facility] oncology/GI and noncompliant with treatment. At this time is terminal. Will discuss goals of care with family as available. Psych: No acute issues. Miscellaneous: No acute issues. Prophylaxis: Pneumatic compression Diet: Nothing by mouth Critical care time spent: 90 minutes Quality Stroke Does the patient have a stroke diagnosis?: No VTE Prior VTE?: No VTE Risk Level:: Medical - moderate - high VTE Device Contraindication: N/A - Device Ordered VTE Drug Contraindication: Treatment Not Indicated
--- NOTE | 2022-10-14 08:55 | MHC.CM.PN ---
Pt intubated and unable to participate in CM assessment: Call placed to pt's emergency contact, former girlfriend, Lynette Li at [phone]: Lynette states pt has children that he has been estranged from and has no contact information. Pt does have a nephew who is in contact w/pt. Pt does not have a HCP per Lynette and she is unaware of any services pt may have. Lynette and pts nephew will be in shortly to visit w/pt and speak w/provider. ICU care team updated on above.
[2022-10-14] MEDS: Norepinephrine Bitartrate/D5W 8 MG/250 ML PLAST..BAG 36.7 MG IV (09:41)
--- NOTE | 2022-10-14 09:48 | P.EN_ITS ---
Event Note Date of Service: 10/14/22 Event Note: GI consult dictated Mr Ruiz has metastatic hepatocellular carcinoma with gi bleeding, complicated by noncompliance (last [facility] visit 08/02). There also appears to be underlying hepatic encephalopathy and a likely component of acute hepatic failure based on labs and scans. EGD is unlikely to reverse this given his clinical condition and he is not a transplant candidate. Recommend discussion with family and transitioning to comfort measures. Time Spent With Patient Time: Total time managing care of this patient today ____ minutes.
[2022-10-14 10:17] LABS: Venous Blood Gas Refer to POC result
[2022-10-14 10:18] LABS: Hemoglobin 7.1 g/dl (14.0-18.0); Mean Corpuscular HGB Conc 34.3 g/dl (31.0-36.0); Mean Corpuscular Hemoglobin 32.1 pg (27.0-33.0); Mean Corpuscular Volume 93.7 fL (80.0-98.0); Mean Platelet Volume 11.5 fL (9.4-12.4); Platelet Count 170 X10*3/uL (160-400); Red Blood Count 2.21 X10*6/uL (4.60-5.80); Red Cell Distribution Width 17.3 % (11.0-16.0); White Blood Count 8.8 X10*3/uL (4.8-10.8)
[2022-10-14 10:21] LABS: NRBC Pct Auto 5.7 /100WBC (0.0-0.2)
[2022-10-14 10:21] LABS: VBG Base Excess 4.3 mmol/L; VBG HCO3 27 mmol/L (22-26); VBG pCO2 36 mmHg; VBG pH 7.48 (7.32-7.43); VBG pO2 53 mmHg
[2022-10-14 10:22] LABS: Hematocrit 20.7 % (42.0-52.0)
[2022-10-14 11:28] LABS: Alanine Aminotransferase 1788 U/L (0-40); Alkaline Phosphatase 407 U/L (39-117); Anion Gap 21 (12-20); Aspartate Amino Transferase > 4202 U/L (5-37); Bilirubin Total 8.3 mg/dL (0.0-1.0); Blood Urea Nitrogen 85 mg/dL (9-16); Calcium 7.7 mg/dL (8.4-10.2); Carbon Dioxide 21 mmol/L (22-29); Chloride 104 mmol/L (96-108); Creatinine Clr Calc Pharmacy 25.9; Estimated Glomerular Filt Rate 25; Glucose Random 79 mg/dL (60-115); Potassium 4.5 mmol/L (3.3-5.1); Sodium 141 mmol/L (135-145); Total Protein 6.5 g/dL (6.5-8.0)
--- NOTE | 2022-10-14 11:38 | CONS_ITS ---
DATE OF SERVICE: 10/14/2022 REFERRING PHYSICIAN: Rosette Hathaway NP REASON FOR CONSULTATION: GI bleeding and hepatocellular carcinoma. HISTORY OF PRESENT ILLNESS: The patient is a 72-year-old male with a history of alcohol abuse and underlying hepatocellular carcinoma, who was admitted to the hospital with a change in mental status and history of hematemesis. He has an underlying history of hepatocellular carcinoma and medical noncompliance. He was last seen in GI followup in [facility] in July 2019, and at that time had a hepatocellular carcinoma, which had been treated with embolization, but not cured and has not been seen since because of medical noncompliance. He was brought to the emergency department by ambulance with a history of hematemesis the day before admission and a change in mental status the day of admission, further medical history is not available regarding his recent admission because he is intubated in the ICU. He was evaluated with laboratory studies and imaging, which are reviewed. Laboratory studies on admission showed elevation of his BUN and creatinine consistent with acute kidney injury and liver function tests showed a coagulopathy with transaminases in the 1000 to 4000 range and a bilirubin of 7.6. He was also noted to have an elevated ammonia consistent with hepatic encephalopathy. Imaging is reviewed and his CT scanning is interpreted as showing metastatic hepatocellular carcinoma involving the liver, vena cava, and lungs as well as adrenal gland. He was intubated and admitted to the intensive care unit. Hematocrit on admission was low at 18.9, and he has received blood products with a followup hematocrit this morning of 21.4. Stools have been melanotic and NG tube insertion resulted in intermittent drainage of dark red blood. Imaging studies also showed small varices in the perigastric area. PAST MEDICAL HISTORY: 1. Hepatocellular carcinoma with underlying cirrhosis on the basis of hepatitis C. 2. Gastroesophageal reflux disease. 3. Asthma. 4. GI bleeding as above. 5. Alcohol abuse. CURRENT MEDICATIONS: His current medication list is reviewed in the chart. ALLERGIES: THERE ARE NONE REPORTED. FAMILY HISTORY: This is unobtainable. SOCIAL HISTORY: There is a history of alcohol abuse. Last drink is unknown. REVIEW OF SYSTEMS: This is unobtainable. PHYSICAL EXAMINATION: GENERAL: Shows a sedated male lying in bed. VITAL SIGNS: Reviewed in the electronic medical record and he is somewhat tachycardic. SKIN: Mildly icteric. HEENT: Shows scleral icterus. NECK: Without lymphadenopathy or thyromegaly. LUNGS: Show coarse breath sounds bilaterally. HEART: Shows regular rhythm. Tachycardic. S1, S2. No murmur. ABDOMEN: Distended. Bowel sounds are present. The liver appears markedly enlarged, extending across the midline and extending down below the umbilicus by percussion and palpation. EXTREMITIES: Without edema. LABORATORY DATA AND IMAGING STUDIES: Reviewed. IMPRESSION: 1. Gastrointestinal bleeding. 2. Hepatocellular carcinoma, metastatic with underlying cirrhosis and hepatitis C infection. At this time, he appears to have significant comorbidity with his underlying cirrhosis and hepatocellular carcinoma. There is also hepatic failure, due to possible ischemia and/or tumor burden and underlying hepatic encephalopathy as judged by his elevated ammonia. Endoscopy is unlikely to reverse his clinical course, especially given his clinical presentation with coagulopathy and cirrhosis as well as his noncompliance. He is not a transplant candidate because of his metastatic liver disease. I recommend discussing this with family members and transitioning him to comfort measures. He is succumbing from underlying illness. Thanks for asking me to see him. I will follow him in the hospital with you. MD AIME Capone/PEREZ / [id number] MTDD
[2022-10-14 12:03] LABS: Glucose, Whole Blood 92 mg/dL (60-115)
--- NOTE | 2022-10-14 13:27 | MHC.CM.PN ---
Received call from pt's son Elder who states he last spoke w/his father months ago. Elder states pt has a hx of being secretive, difficult, and noncompliant with medical care. Elder did not know how ill pt was until notified today by other family member. Elder states he will be at [facility] on 10/15 at 8am to visit w/pt and discuss prognosis w/MD. He states he has no recolection of a HCP being completed. Call placed to pt's PCP and [facility] - no HCP on file at either facility. Will await Elder's arrival and discussion w/MD. Per MD discussion at rounds, pt is critically ill and in multiple organ failure with numerous metastatic sites noted on imaging. CM to follow
[2022-10-14] MEDS: Norepinephrine Bitartrate/D5W 8 MG/250 ML PLAST..BAG 41.94 MG IV (15:35)
[2022-10-14 18:10] LABS: Glucose, Whole Blood 71 mg/dL (60-115)
[2022-10-14] MEDS: Norepinephrine Bitartrate/D5W 8 MG/250 ML PLAST..BAG 65.53 MG IV ×2 (20:12→23:54)
[2022-10-14 20:14] LABS: Hematocrit 28.2 % (42.0-52.0); Hemoglobin 9.6 g/dl (14.0-18.0); Mean Corpuscular Hemoglobin 31.7 pg (27.0-33.0); Mean Corpuscular Volume 93.1 fL (80.0-98.0); Mean Platelet Volume 12.3 fL (9.4-12.4); Platelet Count 169 X10*3/uL (160-400); Red Blood Count 3.03 X10*6/uL (4.60-5.80); Red Cell Distribution Width 17.6 % (11.0-16.0); White Blood Count 11.8 X10*3/uL (4.8-10.8)
[2022-10-14 20:15] LABS: NRBC Pct Auto 14.7 /100WBC (0.0-0.2)
[2022-10-14 20:18] LABS: VBG Base Excess -2.6 mmol/L; VBG HCO3 19 mmol/L (22-26); VBG pCO2 24 mmHg; VBG pO2 102 mmHg
[2022-10-14 20:19] LABS: Venous Blood Gas Refer to POC result
[2022-10-15] VITALS (41 sets, daily range): BP systolic 0–112; BP diastolic 0–77; PULSE 0–129; RESP 16–21; TEMP 34.7–38.4; O2SAT 88–98; BMI 25.3
[2022-10-15] LABS: Glucose, Whole Blood 84 mg/dL (60-115)
[2022-10-15] MEDS: propofoL 1,000 MG/100 ML VIAL 16.78 MG IVCONT (03:03)
[2022-10-15] MEDS: Norepinephrine Bitartrate/D5W 8 MG/250 ML PLAST..BAG 91.74 MG IV (03:18)
[2022-10-15 05:26] LABS: VBG HCO3 19 mmol/L (22-26); VBG pCO2 31 mmHg; VBG pH 7.38 (7.32-7.43); VBG pO2 47 mmHg
[2022-10-15 05:28] LABS: Hematocrit 28.6 % (42.0-52.0); Hemoglobin 9.8 g/dl (14.0-18.0); Mean Corpuscular HGB Conc 34.3 g/dl (31.0-36.0); Mean Corpuscular Hemoglobin 32.3 pg (27.0-33.0); Mean Corpuscular Volume 94.4 fL (80.0-98.0); Mean Platelet Volume 12.3 fL (9.4-12.4); NRBC Pct Auto 5.9 /100WBC (0.0-0.2); Platelet Count 207 X10*3/uL (160-400); Red Blood Count 3.03 X10*6/uL (4.60-5.80); Red Cell Distribution Width 18.3 % (11.0-16.0); Venous Blood Gas Refer to POC result
[2022-10-15 05:41] LABS: Glucose, Whole Blood 85 mg/dL (60-115)
[2022-10-15] MEDS: Pantoprazole Sodium 40 MG/10 ML VIAL IVPUSH (05:41)
[2022-10-15] MEDS: Piperacillin Sodium/Tazobactam 3.375 GM in 0.9 % Sodium Chloride 50 ML IV ×2 (05:43→12:05)
[2022-10-15 05:50] LABS: Band Neutrophils Percent 27 % (3-5); Basophils Abs Manual 0.4 X10*3/uL (0.0-0.2); Basophils Percent Manual 3 % (0-2); Lymphocytes Absolute Manual 0.8 X10*3/uL (1.2-4.9); Lymphocytes Percent Manual 6 % (20-40); Metamyelocytes Absolute 0.3 X10*3/uL; Metamyelocytes Percent 2 %; Monocytes Absolute Manual 0.5 X10*3/uL (0.1-1.2); Monocytes Percent Manual 4 % (2-11); Neutrophils Absolute Manual 11.1 X10*3/uL (2.0-8.3); Neutrophils Percent Manual 58 % (45-73); Nucleated Red Blood Cells 7 /100WBC (0-0); RBC Morphology NOTED
[2022-10-15 05:51] LABS: Basophilic Stippling 1+ (0-2) /OIF; Dohle Bodies PRESENT; Large Platelet PRESENT; Platelet Estimate NORMAL (NORMAL); Platelet Morphology Comment NOTED; Polychromasia 1+ (0-2) /OIF; Target Cells 1+ (5-14) /OIF; Toxic Vacuolation PRESENT
[2022-10-15] MEDS: Norepinephrine Bitartrate/D5W 8 MG/250 ML PLAST..BAG 131.06 MG IV ×5 (05:56→13:51)
[2022-10-15] MEDS: Vasopressin 20 UNIT/100 ML INFUS..BTL 12 UNIT IV ×2 (06:06→13:19)
--- NOTE | 2022-10-15 06:28 | PC.NURSE ---
PT REMAINS ON AC VENT SETTINGS OVERNIGHT. NO RESP DIFFICULTIES. BP CONTINUED TO DROP DESPITE INCREASES IN LEVOPHED TO MAX RATE OF 1 MCG/KG/MIN. VASOPRESSIN HAD TO BE ADDED AND INFUSING AT 0.04 UNITS/MIN. BP AT THIS TIME 109/62/79. URINE OUTPUT ALMOST NIL, MAYBE 10 ML OVER PAST 12 HRS. PROVIDER AWARE. NO OUTPUT FROM OGT TO LWS AND LITTLE LIQUID STOOL FROM RECTAL TUBE, APPROX 200 ML DARK TARRY STOOL.
[2022-10-15 07:50] LABS: Alanine Aminotransferase 2165 U/L (0-40); Albumin Level 2.4 g/dL (3.5-5.0); Alkaline Phosphatase 473 U/L (39-117); Anion Gap 24 (12-20); Bilirubin Total 10.3 mg/dL (0.0-1.0); Blood Urea Nitrogen 92 mg/dL (9-16); Calcium 6.9 mg/dL (8.4-10.2); Carbon Dioxide 16 mmol/L (22-29); Chloride 99 mmol/L (96-108); Creatinine Clr Calc Pharmacy 13.8; Estimated Glomerular Filt Rate 12; Glucose Random 91 mg/dL (60-115); Magnesium 1.7 mg/dL (1.6-2.6); Phosphorus 7.3 mg/dL (2.7-4.5); Potassium 4.9 mmol/L (3.3-5.1); Sodium 134 mmol/L (135-145); Total Protein 6.6 g/dL (6.5-8.0)
[2022-10-15 07:51] LABS: Aspartate Amino Transferase > 4202 U/L (5-37)
[2022-10-15] MEDS: Chlorhexidine Gluc Oral Rinse 15 ML MOUTHWASH BUCCAL (08:01)
[2022-10-15] MEDS: Dextrose 5 % and Lactated Ring 1,000 ML 100 ML IVCONT (08:16)
[2022-10-15] MEDS: propofoL 1,000 MG/100 ML VIAL 4.19 MG IVCONT (08:50)
--- NOTE | 2022-10-15 10:07 | MHC.CLN ---
F/U DISCUSSED AT ROUNDS WITH PT REMAINS NPO AT THIS TIME AWAITING FAMILY TEAM MEETING TO DISCUSS POSSIBLE CURRICULUM MANAGER WILL FOLLOW WITH TEAM AND PROVIDE SUPPORT NEEDED
--- NOTE | 2022-10-15 10:56 | P.PNCC_ITS ---
Subjective Subjective Date of Service: 10/15/22 Interval History: 72-year-old gentleman with underlying alcoholism, hepatitis-C, known hepatocellular carcinoma, previously followed up by [facility] oncology/GI, noncompliant with treatments admitted on 10/13/2022 with alteration of mental sta tus and subacute anemia secondary to upper GI bleed requiring intubation and ventilatory support. On ER evaluation patient with metabolic acidosis, acute renal failure, imaging consistent with metastatic liver cancer with the vena cava involvement. Admitted is intensive care unit, started on blood product resuscitation and bicarbonate drip with improvement in blood counts and metabolic acidosis. Evaluated by Gastroenterology and Oncology services with essentially no options for further treatment available. No events overnight, however continues to decline steadily. Critical Care Time (minutes): 45 Physical Exam 2 Vital Signs: Vital Signs: Last Vital Signs Temp 100.4 F 10/15/22 10:00 Pulse 84 10/15/22 10:00 Resp 20 10/15/22 10:00 BP 100/48 L 10/15/22 10:00 Pulse Ox 98 10/15/22 10:00 O2 Del Method Mechanical Ventil ation 10/15/22 10:00 FiO2 60 10/15/22 10:00 BMI result Body Mass Index 25.3 Const: General: no acute distress and other ( Jaundiced, sedated on the vent) Eyes: Sclerae: sclerae normal EOM: EOMs intact bilaterally Neck: Neck: Yes no lymphadenopathy, Yes trachea midline and Yes supple Resp: Auscultation: crackles ( diffuse bilateral) Cardio: Rate: regular rate Rhythm: regular rhythm Heart sounds: no gallops, no murmurs and no rubs GI: Palpation (GI): Soft to palpation and Other GI palpation findings present ( Nontender) Auscultation: normal bowel sounds Extrem: General: No clubbing, No cyanosis and Yes edema ( 1+ bilateral) Objective Data Labs 10/15/22 05:20 10/15/22 06:54 Labs: Laboratory Results - last 24 hr 10/13/22 10/13/22 10/14/22 16:16 16:55 10:08 WBC RBC Hgb Hct MCV MCH MCHC RDW Plt Count MPV Immature Gran % (Auto) Neut % (Auto) Lymph % (Auto) Twiggs % (Auto) Eos % (Auto) Baso % (Auto) Lymph # (Auto) Twiggs # (Auto) Eos # (Auto) Baso # (Auto) Abs Immat Gran (auto) Absolute Neuts (auto) Absolute Nucleated RBC Nucleated RBC % (auto) Neutrophils % (Manual) Band Neutrophils % Lymphocytes % (Manual) Monocytes % (Manual) Basophils % (Manual) Metamyelocytes % Abs Neuts (Manual) Lymphocytes # (Manual) Monocytes # (Manual) Basophils # (Manual) Metamyelocytes # Nucleated RBCs Toxic Vacuolation Dohle Bodies Platelet Estimate Large Platelets Plt Morphology Comment RBC Morphology Polychromasia Basophilic Stippling Target Cells VBG pH VBG pCO2 VBG pO2 VBG HCO3 VBG O2 Saturation VBG Base Excess Sodium 141 Potassium 4.5 Chloride 104 Carbon Dioxide 21 L Anion Gap 21 H BUN 85 H Creatinine 2.50 H Estim Creat Clear Calc 25.9 Estimated GFR 25 POC Glucose Random Glucose 79 Calcium 7.7 L Phosphorus Magnesium Total Bilirubin 8.3 H AST > 4202 H ALT 1788 H Alkaline Phosphatase 407 H Total Protein 6.5 Albumin 3.0 L Stool Occult Blood Cancelled Blood Type O Positive Antibody Screen NEGATIVE Crossmatch See Detail 10/14/22 10/14/22 10/14/22 11:59 18:08 20:08 WBC 11.8 H RBC 3.03 L D Hgb 9.6 L D Hct 28.2 L D MCV 93.1 MCH 31.7 MCHC 34.0 RDW 17.6 H Plt Count 169 MPV 12.3 Immature Gran % (Auto) Neut % (Auto) Lymph % (Auto) Twiggs % (Auto) Eos % (Auto) Baso % (Auto) Lymph # (Auto) Twiggs # (Auto) Eos # (Auto) Baso # (Auto) Abs Immat Gran (auto) Absolute Neuts (auto) Absolute Nucleated RBC 1.740 H Nucleated RBC % (auto) 14.7 H Neutrophils % (Manual) Band Neutrophils % Lymphocytes % (Manual) Monocytes % (Manual) Basophils % (Manual) Metamyelocytes % Abs Neuts (Manual) Lymphocytes # (Manual) Monocytes # (Manual) Basophils # (Manual) Metamyelocytes # Nucleated RBCs Toxic Vacuolation Dohle Bodies Platelet Estimate Large Platelets Plt Morphology Comment RBC Morphology Polychromasia Basophilic Stippling Target Cells VBG pH VBG pCO2 VBG pO2 VBG HCO3 VBG O2 Saturation VBG Base Excess Sodium Potassium Chloride Carbon Dioxide Anion Gap BUN Creatinine Estim Creat Clear Calc Estimated GFR POC Glucose 92 71 Random Glucose Calcium Phosphorus Magnesium Total Bilirubin AST ALT Alkaline Phosphatase Total Protein Albumin Stool Occult Blood Blood Type Antibody Screen Crossmatch 10/14/22 10/14/22 10/15/22 20:10 23:39 05:17 WBC RBC Hgb Hct MCV MCH MCHC RDW Plt Count MPV Immature Gran % (Auto) Neut % (Auto) Lymph % (Auto) Twiggs % (Auto) Eos % (Auto) Baso % (Auto) Lymph # (Auto) Twiggs # (Auto) Eos # (Auto) Baso # (Auto) Abs Immat Gran (auto) Absolute Neuts (auto) Absolute Nucleated RBC Nucleated RBC % (auto) Neutrophils % (Manual) Band Neutrophils % Lymphocytes % (Manual) Monocytes % (Manual) Basophils % (Manual) Metamyelocytes % Abs Neuts (Manual) Lymphocytes # (Manual) Monocytes # (Manual) Basophils # (Manual) Metamyelocytes # Nucleated RBCs Toxic Vacuolation Dohle Bodies Platelet Estimate Large Platelets Plt Morphology Comment RBC Morphology Polychromasia Basophilic Stippling Target Cells VBG pH 7.50 H 7.38 VBG pCO2 24 31 VBG pO2 102 47 VBG HCO3 19 L 19 L VBG O2 Saturation 99.0 74.0 VBG Base Excess -2.6 -5.0 Sodium Potassium Chloride Carbon Dioxide Anion Gap BUN Creatinine Estim Creat Clear Calc Estimated GFR POC Glucose 84 Random Glucose Calcium Phosphorus Magnesium Total Bilirubin AST ALT Alkaline Phosphatase Total Protein Albumin Stool Occult Blood Blood Type Antibody Screen Crossmatch 10/15/22 10/15/22 10/15/22 05:20 05:38 06:54 WBC 13.0 H RBC 3.03 L Hgb 9.8 L Hct 28.6 L MCV 94.4 MCH 32.3 MCHC 34.3 RDW 18.3 H Plt Count 207 MPV 12.3 Immature Gran % (Auto) Cancelled Neut % (Auto) Cancelled Lymph % (Auto) Cancelled Twiggs % (Auto) Cancelled Eos % (Auto) Cancelled Baso % (Auto) Cancelled Lymph # (Auto) Cancelled Twiggs # (Auto) Cancelled Eos # (Auto) Cancelled Baso # (Auto) Cancelled Abs Immat Gran (auto) Cancelled Absolute Neuts (auto) Cancelled Absolute Nucleated RBC 0.760 H Nucleated RBC % (auto) 5.9 H Neutrophils % (Manual) 58 Band Neutrophils % 27 H Lymphocytes % (Manual) 6 L Monocytes % (Manual) 4 Basophils % (Manual) 3 H Metamyelocytes % 2 Abs Neuts (Manual) 11.1 H Lymphocytes # (Manual) 0.8 L Monocytes # (Manual) 0.5 Basophils # (Manual) 0.4 H Metamyelocytes # 0.3 Nucleated RBCs 7 H Toxic Vacuolation PRESENT Dohle Bodies PRESENT Platelet Estimate NORMAL Large Platelets PRESENT Plt Morphology Comment NOTED RBC Morphology NOTED Polychromasia 1+ (0-2) Basophilic Stippling 1+ (0-2) Target Cells 1+ (5-14) VBG pH VBG pCO2 VBG pO2 VBG HCO3 VBG O2 Saturation VBG Base Excess Sodium 134 L Potassium 4.9 Chloride 99 Carbon Dioxide 16 L Anion Gap 24 H BUN 92 H Creatinine 4.69 H* Estim Creat Clear Calc 13.8 Estimated GFR 12 POC Glucose 85 Random Glucose 91 Calcium 6.9 L D Phosphorus 7.3 H Magnesium 1.7 Total Bilirubin 10.3 H AST > 4202 H ALT 2165 H Alkaline Phosphatase 473 H Total Protein 6.6 Albumin 2.4 L Stool Occult Blood Blood Type Antibody Screen Crossmatch Microbiology Microbiology Results: Microbiology 10/13/22 18:32 Urine Catheterized - Brennan Catheter Urine Culture - Final No growth. 10/13/22 16:54 Blood - Venous Blood Culture - Preliminary No growth after 24 hours. 10/13/22 16:16 Blood - Venous Blood Culture - Preliminary No growth after 24 hours. 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: Status: Acute (2) Acute renal failure: Status: Acute (3) Acute respiratory failure: Status: Acute (4) Acute liver failure with hepatic coma: Status: Acute (5) Metabolic encephalopathy: Status: Acute (6) Coagulopathy: Status: Acute (7) Hepatitis C: Status: Acute (8) History of noncompliance with medical treatment: Status: Acute Plan Assessment:? 72-year-old gentleman with underlying metastatic hepatocellular carcinoma admitted with acute metabolic encephalopathy, subacute anemia, upper GI bleed on the background of acute liver failure with acute renal failure now requiring ventilatory support. Plan: Neuro:? Metabolic encephalopathy secondary to acute liver failure overall prognosis for recovery is negligible. Discussions of goals of care ongoing with the family. Cardiac:? No acute issues. Pulmonary:? Acute respiratory failure secondary to acute metabolic encephalopathy intubated for airway protection. Now with progressive hypoxemia secondary to pulmonary edema.? Continue ventilatory support. Renal:? Acute renal failure with metabolic acidosis on the background of acute liver failure.? Hepatorenal syndrome.? Acidosis improved with bicarbonate drip, though overall renal function is deteriorating. Continue to monitor renal indices and urine output. Endo:? No acute issues.? GI:? Acute liver failure on the background of metastatic hepatocellular carcinoma.? Gastroenterology service care appreciated.? Acute to subacute GI bleed.? Continue on PPI and octreotide.? Not a candidate for interventions. Liver failure is progressing. ID:? No acute issues Heme/Onc:? Known hepatocellular carcinoma, now with vena cava involvement and metastatic to the lung.? Oncology service care appreciated.? Previously followed by [facility] oncology/GI and noncompliant with treatment.? At this time is terminal.? Will discuss goals of care with family as available. Psych:? No acute issues. Miscellaneous:? No acute issues. Prophylaxis:? Pneumatic compression Diet:? Nothing by mouth Critical care time spent:? 45 minutes Quality Stroke Does the patient have a stroke diagnosis?: No VTE Prior VTE?: No VTE Risk Level:: Medical - moderate - high VTE Device Contraindication: N/A - Device Ordered VTE Drug Contraindication: Treatment Not Indicated
[2022-10-15 12:13] LABS: Glucose, Whole Blood 124 mg/dL (60-115)
--- NOTE | 2022-10-15 12:46 | PM.CCN ---
Critical Care Event Note Summary Date of Service: 10/15/22 Code activated: No Narrative: Overall terminal prognosis discussed with patient's son who requested code status to be changed to do not resuscitate. Critical Care Time (minutes): 0
--- NOTE | 2022-10-15 13:51 | MHC.CM.PN ---
Pt continues on ventilatory support w/multiorgan failure: pt's son Elder in to visit and has contacted his brother who will be in to visit and discuss goals of care i.e: POWERSAW SUPERVISOR. Elder states pt would not want aggressive supports and care and feels comfortable w/POWERSAW SUPERVISOR status but wants his siblings to have input. MD to discuss changing code status w/Elder from full code to DNR as pt's overall condition is tenuous. CM to follow.
--- NOTE | 2022-10-15 15:41 | P.DN_ITS ---
Discharge Sum: Prov Provider Primary care physician: Chris Lopez MD Consults: 10/13/22 22:39 Consult to Gastroenterology Routine Consulting Provider: Valentine Laurent Reason for consultation: Acute GI bleed, liver mass Has provider been notified: Yes Discharge Sum: Diag Contributing Factors (1) Hepatocellular carcinoma metastatic to lung: (2) Acute renal failure: (3) Acute respiratory failure: (4) Acute liver failure with hepatic coma: (5) Metabolic encephalopathy: (6) Coagulopathy: (7) Hepatitis C: (8) History of noncompliance with medical treatment: Discharge Sum: Summary Date and Time Date of admission: 10/13/22 19:14 Date of : 10/15/22 Time of : 14:53 Summary Details: 72-year-old gentleman with underlying alcoholism, hepatitis-C, known hepatocellular carcinoma, previously followed up by [facility] oncology/GI, noncompliant with treatments admitted on 10/13/2022 with alteration of mental status and subacute anemia secondary to upper GI bleed requiring intubation and ventilatory support. On ER evaluation patient with metabolic acidosis, acute renal failure, imaging consistent with metastatic liver cancer with the vena cava involvement. Admitted is intensive care unit, started on blood product resuscitation and bicarbonate drip with improvement in blood counts and metabolic acidosis. Evaluated by Gastroenterology and Oncology services with essentially no options for further treatment available. Overall terminal prognosis discussed with patient's son who requested code status to be changed to do not resuscitate. At approximately 14:50 patient with sudden change in underlying heart rhythm with development of asystole. on my exam no pulse, no respirations, now heart sounds, no cough or gag reflexes - official time of 14:53 Additional Data Family: at bedside Attending physician: Sudhir Martinez MD
== END 2022-10-15 19:09 | disposition expired | DRG 441 ==
LOC: HO.ED 19:44 → HO.EDOVER 19:49 → HO.ICU 20:10
PROVIDERS: Admitting Provider Nurse Practitioner Family; Emergency Provider Emergency Medicine; PCP Internal Medicine; Visit Provider Internal Medicine Pulmonary Disease
DX: K72.01 Acute and subacute hepatic failure with coma (principal); G93.41 Metabolic encephalopathy; J96.01 Acute respiratory failure with hypoxia; K76.7 Hepatorenal syndrome; C22.0 Liver cell carcinoma; N17.9 Acute kidney failure, unspecified; D62 Acute posthemorrhagic anemia; E87.20 Acidosis, unspecified; D68.9 Coagulation defect, unspecified; K92.2 Gastrointestinal hemorrhage, unspecified; C78.00 Secondary malignant neoplasm of unspecified lung; Z66 Do not resuscitate; F10.20 Alcohol dependence, uncomplicated; K74.60 Unspecified cirrhosis of liver; D63.0 Anemia in neoplastic disease; R57.1 Hypovolemic shock; E87.5 Hyperkalemia; Z86.19 Personal history of other infectious and parasitic diseases; Z20.822 Contact with and (suspected) exposure to COVID-19; Z91.199 Patient's noncompliance with other medical treatment and regimen due to unspecified reason
CPT/HCPCS: 36415; 70450; 71045; 74177; 80048; 80053; 80076; 80143; 80179; 80307; 81001; 82140; 82803; 82947; 83605; 83690; 83735; 83880; 84100; 84443; 84484; 85007; 85025; 85027; 85610; 85730; 86850; 86900; 86901; 86923; 87040; 87086; 87635; 93005; 94002; 94003; 99285; C1758; J0613; J2060; J2354; J2543; J3010; P9016; P9047; Q9967